=== PATIENT | male | born 1985 | race Caucasian/White ===

== ENCOUNTER 2020-09-13 07:21 | Day surgery (SDC) | payer OTHER ==
[2020-09-11 10:12] VITALS: BMI 65.0
[~2020-09-13 07:21] MED LIST: ACETAMINOPHEN TAB 500 MG TAB PO PRN; HEPARIN SODIUM,PORCINE 5,000 UNIT/ML 1 ML VIAL SQ PRN; Pre Op ABX Message 1 EACH MISC MISCELLANE ONE
[2020-09-13] MEDS ORDERED: ONDANSETRON 4 MG/2 ML VIAL ONE (07:53)
[2020-09-13] MEDS ORDERED: LACTATED RINGERS 1,000 ML IV ONE (08:15)
[2020-09-13] MEDS ORDERED: ONDANSETRON 4 MG/2 ML VIAL IVP ONE (08:18)
[2020-09-13] MEDS ORDERED: LIDOCAINE 1% (10MG/ML) FOR IV START INTRADERMA ONE (08:18)
[2020-09-13] MEDS ORDERED: DEXAMETHASONE SOD PHOSPHATE 4 MG/ML 1 ML VIAL IV ONE (08:19)
--- NOTE | 2020-09-13 09:01 | P.GSHP ---
History of Present Illness H&P Date: 09/13/20 Chief Complaint: Lipoma posterior scalp This is a 35-year-old male who presents today for excision of lipoma. Patient has a 10 cm lipoma located posterior scalp. Past Medical History Past Medical History: Asthma, GERD/Reflux Additional Past Medical History / Comment(s): No medication use for Asthma. Varicose veins. History of Any Multi-Drug Resistant Organisms: None Reported Past Surgical History: Hernia Repair Additional Past Surgical History / Comment(s): Distended bowel at 1 month old, had surgery. EGD. Past Anesthesia/Blood Transfusion Reactions: Previous Problems w/ Anesthesia Additional Past Anesthesia/Blood Transfusion Reaction / Comment(s): "Blood oxygen low coming out after hernia surgery." Past Psychological History: No Psychological Hx Reported Smoking Status: Former smoker Past Alcohol Use History: Rare Additional Past Alcohol Use History / Comment(s): Smoked for a few months 3 yrs ago. Past Drug Use History: None Reported - Past Family History Father Family Medical History: Pulmonary Embolus Medications and Allergies Home Medications Medication Instructions Recorded Confirmed Type Omeprazole 40 mg PO QAM 09/11/20 09/13/20 History Allergies Allergy/AdvReac Type Severity Reaction Status Date / Time No Known Allergies Allergy Verified 09/13/20 07:49 Surgical - Exam Vital Signs Temp Pulse Resp BP Pulse Ox 97.6 F 95 16 136/89 99 09/13/20 07:42 09/13/20 07:42 09/13/20 07:42 09/13/20 07:42 09/13/20 07:42 - General well developed, well nourished, no distress - Eyes PERRL - ENT normal pinna - Neck no masses - Respiratory normal expansion - Cardiovascular Rhythm: regular - Abdomen Abdomen: soft, non tender - Integumentary 10 cm lipoma posterior scalp Assessment and Plan Assessment: Posterior scalp lipoma. We'll perform excision.
[2020-09-13] MEDS ORDERED: MIDAZOLAM 2 MG/2 ML VIAL ONE (09:05)
[2020-09-13] MEDS ORDERED: KETOROLAC 15 MG/ML 1 ML VIAL ONE (09:05)
[2020-09-13] MEDS ORDERED: KETAMINE 10 MG/ML 20 ML VIAL ONE (09:05)
[2020-09-13] MEDS ORDERED: PROPOFOL 10 MG/ML 20 ML VIAL IV ONE (09:05)
[2020-09-13] MEDS ORDERED: fentaNYL (PF) 50 MCG/ML 2 ML AMP ONE (09:05)
[2020-09-13] MEDS ORDERED: BUPIVACAINE (PF) 0.25% 30 ML VIAL SQ ONE ×2 (09:26)
[2020-09-13 10:22] VITALS: TEMP 97.4
--- NOTE | 2020-09-13 10:23 | P.OP ---
Date of Procedure: 09/13/20 Preoperative Diagnosis: 10 cm lipoma of posterior scalp Postoperative Diagnosis: 10 cm sebaceous cyst posterior scalp Procedure(s) Performed: Excision of sebaceous cyst Anesthesia: MAC Surgeon: Carter Richard Estimated Blood Loss (ml): 10 Pathology: other (Sebaceous cyst) Condition: stable Disposition: PACU Description of Procedure: Patient's placed on the operative table in the lateral position. He received IV sedation. His posterior neck was prepped and draped usual sterile fashion. The skin was anesthetized 1% local Xylocaine. Using a 15 blade the skin was incised and then using electrocautery and sharp dissection the mass was excised. The mass is a large sebaceous cyst. Cystoscopy removed. Bovie hemostasis. The skin was closed interrupted 3-0 Monocryl suture. A [place] drains placed a wound. Patient top she will was sent to recovery room stable condition.
[2020-09-13 10:50] VITALS: RESP 16
[2020-09-13 11:10] VITALS: BP 113/71; PULSE 85
== END 2020-09-13 12:16 | disposition home or self-care (01) ==
LOC: OR 07:21
PROVIDERS: ATTEND Surgery
DX: L72.11 Pilar cyst (principal); J45.909 Unspecified asthma, uncomplicated; K21.9 Gastro-esophageal reflux disease without esophagitis; I83.90 Asymptomatic varicose veins of unspecified lower extremity; Z98.890 Other specified postprocedural states; Z87.891 Personal history of nicotine dependence; Z79.899 Other long term (current) drug therapy
CPT/HCPCS: 88304; 11426; J2250; J1644; J1100; J2405; J3010; J1885; J2704

== ENCOUNTER → 2020-09-23 | Outpatient (CLI) | payer OTHER ==
[2020-09-23 14:22] VITALS: BP 129/85; PULSE 110; RESP 22; TEMP 97.8; BMI 68.2
--- NOTE | 2020-09-23 14:30 | P.HPBAR ---
Bariatric H&P - History & Physicial H&P Date: 09/23/20 History & Physicial: Visit/CC: initial visit Patient initial contact: Initial weight: Initial weight in pounds: Height: 6 ft 3 in Initial BMI: Last weight: Current weight: 247.661 kg Current weight in pounds: 546.00 Current BMI: 68.2 [place] body weight (based on NIH guidelines): 88.904 kg Excess body weight loss: The patient is a 35 year-old M who presents for Bariatric Assessment. Patient presents today for initial bariatric consultation. He is obese. BMI is 68. He weighs 546 pounds. He has had lifetime problems obesity. He has multiple medical comorbidities. Past Medical History Past Medical History: Asthma, GERD/Reflux, Osteoarthritis (OA) Additional Past Medical History / Comment(s): No medication use for Asthma. Varicose veins. History of Any Multi-Drug Resistant Organisms: None Reported Past Surgical History: Appendectomy, Hernia Repair Additional Past Surgical History / Comment(s): Distended bowel at 1 month old, had surgery. EGD. "golf ball size" fatty tumor removed Aug 2020. Past Anesthesia/Blood Transfusion Reactions: Previous Problems w/ Anesthesia Additional Past Anesthesia/Blood Transfusion Reaction / Comm: "Blood oxygen low coming out after hernia surgery." Past Psychological History: No Psychological Hx Reported Smoking Status: Former smoker Past Alcohol Use History: Rare Additional Past Alcohol Use History / Comment(s): Smoked for a few months 3 yrs ago. Past Drug Use History: None Reported - Past Family History Father Family Medical History: Pulmonary Embolus Surgical - Exam Vital Signs Temp Pulse Resp BP 97.8 F 110 H 22 129/85 09/23/20 14:02 09/23/20 14:02 09/23/20 14:02 09/23/20 14:02 BMI 68 - General well developed, well nourished, no distress - Eyes PERRL - ENT normal pinna - Neck no masses - Respiratory normal expansion - Cardiovascular Rhythm: regular - Abdomen Abdomen: soft, non tender Bariatric Assessment & Plan Plan: Morbid obesity, BMI 68. Patient will undergo EGD. He'll follow-up next month. Bariatric Checklist Checklist: Plan: Checklist: EGD: 1. Hiatal hernia: 2. H. Pylori: HgbA1c: Vitamin D: Smoking: Primary care physician referral: Dr. Duenas Psychiatry clearance: Cardiology clearance: Sleep study: Diet journal: VTE risk score: VTE risk level: Rehab needs at discharge:
[2020-09-23 16:01] LABS: HCT 45.6 % (39.0-53.0); HGB 15.4 gm/dL (13.0-17.5); MCH 28.9 pg (25.0-35.0); MCHC 33.7 g/dL (31.0-37.0); MCV 85.6 fL (80.0-100.0); Mean Platelet Volume 6.9; Platelet Count 344 k/uL (150-450); RBC 5.33 m/uL (4.30-5.90); RDW 12.7 % (11.5-15.5); WBC 13.2 k/uL (3.8-10.6)
[2020-09-24 01:44] LABS: African American GFR (CKD) 112.5 (60.0-200.0); Albumin 4.7 g/dL (3.80-4.90); Albumin/Globulin Ratio 2.04 (1.60-3.17); Anion Gap 13.7 mmol/L (4.00-12.00); Calcium 9.3 mg/dL (8.7-10.3); Carbon Dioxide 22.3 mmol/L (21.6-31.8); Globulin 2.3 g/dL (1.6-3.3); Non-African American GFR(CKD) 97.1 (60.0-200.0); Potassium 4.1 mmol/L (3.5-5.5); Total Bilirubin 0.3 mg/dL (0.3-1.2)
[2020-09-24 03:38] LABS: Hemoglobin A1C 5.2 % (4.0-6.0)
== END | disposition home or self-care (01) ==
LOC: BARWHC3 13:56
PROVIDERS: ATTEND Surgery
DX: E66.01 Morbid (severe) obesity due to excess calories (principal); Z68.44 Body mass index [BMI] 60.0-69.9, adult
CPT/HCPCS: 36415; 80053; 82306; 82607; 82746; 83036; 84425; 85027; 99211

== ENCOUNTER 2020-10-10 09:41 | Day surgery (SDC) | payer OTHER ==
[2020-10-09 09:36] VITALS: BMI 68.1
[~2020-10-10 09:41] MED LIST changes: -ACETAMINOPHEN TAB 500 MG TAB PO PRN; -HEPARIN SODIUM,PORCINE 5,000 UNIT/ML 1 ML VIAL SQ PRN; +LACTATED RINGERS 1,000 ML IV SCH; +LIDOCAINE 1% (10MG/ML) FOR IV START INTRADERMA PRN; -Pre Op ABX Message 1 EACH MISC MISCELLANE ONE
[2020-10-10 11:04] VITALS: RESP 16; TEMP 98
[2020-10-10] MEDS ORDERED: PROPOFOL 10 MG/ML 20 ML VIAL IV ONE (11:26)
--- NOTE | 2020-10-10 11:28 | P.GSHP ---
History of Present Illness H&P Date: 10/10/20 Chief Complaint: GERD, morbid obesity Is a 35-year-old male presents today for EGD. And issues with GERD. Patient underwent workup for sleeve gastrectomy. His current BMI is 68 Past Medical History Past Medical History: Asthma, GERD/Reflux, Osteoarthritis (OA) Additional Past Medical History / Comment(s): No medication use for Asthma. Varicose veins. History of Any Multi-Drug Resistant Organisms: None Reported Past Surgical History: Appendectomy, Hernia Repair Additional Past Surgical History / Comment(s): Distended bowel at 1 month old, had surgery. EGD. 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 Past Anesthesia/Blood Transfusion Reactions: Previous Problems w/ Anesthesia Additional Past Anesthesia/Blood Transfusion Reaction / Comment(s): "Blood oxygen low coming out after hernia surgery." Smoking Status: Former smoker - Past Family History Father Family Medical History: Pulmonary Embolus Medications and Allergies Home Medications Medication Instructions Recorded Confirmed Type Omeprazole 40 mg PO QAM 09/11/20 10/09/20 History Allergies Allergy/AdvReac Type Severity Reaction Status Date / Time cat dander Allergy Swelling Verified 10/10/20 11:00 Surgical - Exam Vital Signs Temp Pulse Resp BP Pulse Ox 98 F 93 16 163/95 96 10/10/20 11:02 10/10/20 11:02 10/10/20 11:02 10/10/20 11:02 10/10/20 11:02 - General well developed, well nourished, no distress - Eyes PERRL - ENT normal pinna - Neck no masses - Respiratory normal expansion - Cardiovascular Rhythm: regular - Abdomen Abdomen: soft, non tender Assessment and Plan Assessment: GERD. We'll perform EGD. Morbid obesity, BMI 68
--- NOTE | 2020-10-10 11:41 | P.OP ---
Date of Procedure: 10/10/20 Preoperative Diagnosis: GERD Morbid obesity Postoperative Diagnosis: Antral gastritis Morbid obesity, BMI 68 Procedure(s) Performed: EGD Anesthesia: MAC Surgeon: Carter Richard Pathology: other (Antrum) Condition: stable Disposition: PACU Description of Procedure: The patient's placed on the endoscopy table in the lateral position. He received IV sedation. The gastroscope placed oropharynx passed in the esophagus and stomach. Scope was then placed through the pylorus. First and second portion of the duodenum. Normal. Scope was then brought back the antrum was mildly inflamed. A biopsies performed. Scope was then retroflexed and remainder stomach appeared normal. The GE junction was at 47 is. There is no significant hiatal hernia. The distal esophagus appeared normal. The proximal esophagus appeared normal. Scope was withdrawn for patient.
[2020-10-10 12:03] VITALS: BP 132/86; PULSE 93
== END 2020-10-10 12:27 | disposition home or self-care (01) ==
LOC: ORWHC2ENDO 09:41
PROVIDERS: ATTEND Surgery
DX: K29.50 Unspecified chronic gastritis without bleeding (principal); E66.01 Morbid (severe) obesity due to excess calories; Z68.44 Body mass index [BMI] 60.0-69.9, adult; J45.909 Unspecified asthma, uncomplicated; K21.9 Gastro-esophageal reflux disease without esophagitis; M19.90 Unspecified osteoarthritis, unspecified site; I83.90 Asymptomatic varicose veins of unspecified lower extremity; Z90.89 Acquired absence of other organs; Z98.890 Other specified postprocedural states; Z87.891 Personal history of nicotine dependence; Z82.49 Family history of ischemic heart disease and other diseases of the circulatory system; Z79.899 Other long term (current) drug therapy; Z91.048 Other nonmedicinal substance allergy status
CPT/HCPCS: 43239; 88305

== ENCOUNTER → 2020-10-21 | Outpatient (CLI) | payer OTHER ==
[2020-10-21 14:39] VITALS: BP 139/90; PULSE 101; RESP 16; TEMP 98; BMI 67.5
--- NOTE | 2020-10-21 15:29 | P.HPBAR ---
Bariatric H&P - History & Physicial H&P Date: 10/21/20 History & Physicial: Visit/CC: EGD f/u Patient initial contact: Initial weight: 244.94 kg Initial weight in pounds: 540.00 Height: 6 ft 3 in Initial BMI: 67.5 Last weight: Current weight: 244.94 kg Current weight in pounds: 540.00 Current BMI: 67.5 [place] body weight (based on NIH guidelines): 88.904 kg Excess body weight loss: 0.0% The patient is a 35 year-old M who presents for Bariatric Assessment. Patient presents today for presurgical consultation. He underwent EGD last week. Patient's found have some mild gastritis. His current BMI is 68. Past Medical History Past Medical History: Asthma, GERD/Reflux, Osteoarthritis (OA) Additional Past Medical History / Comment(s): No medication use for Asthma. Varicose veins. History of Any Multi-Drug Resistant Organisms: None Reported Past Surgical History: Appendectomy, Hernia Repair Additional Past Surgical History / Comment(s): Distended bowel at 1 month old, had surgery. EGD. 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 Past Anesthesia/Blood Transfusion Reactions: Previous Problems w/ Anesthesia Additional Past Anesthesia/Blood Transfusion Reaction / Comm: "Blood oxygen low coming out after hernia surgery." Smoking Status: Former smoker - Past Family History Father Family Medical History: Pulmonary Embolus Surgical - Exam Vital Signs Temp Pulse Resp BP 98 F 101 H 16 139/90 10/21/20 14:36 10/21/20 14:36 10/21/20 14:36 10/21/20 14:36 - General well developed, well nourished, no distress - Eyes PERRL - ENT normal pinna - Neck no masses - Respiratory normal expansion - Cardiovascular Rhythm: regular - Abdomen Abdomen: soft, non tender Bariatric Assessment & Plan Plan: RBC, BMI is 68. Patient will be scheduled for sleeve gastrectomy once his insurance authorization requirements have been met. Bariatric Checklist Checklist: Plan: Checklist: EGD: 1. Hiatal hernia: 2. H. Pylori: HgbA1c: Vitamin D: Smoking: Primary care physician referral: Dr. Duenas Psychiatry clearance: Cardiology clearance: Sleep study: Diet journal: VTE risk score: VTE risk level: Rehab needs at discharge:
== END | disposition home or self-care (01) ==
LOC: BARWHC3 13:55
PROVIDERS: ATTEND Surgery
DX: Z01.818 Encounter for other preprocedural examination (principal); J45.909 Unspecified asthma, uncomplicated; E66.01 Morbid (severe) obesity due to excess calories; M19.90 Unspecified osteoarthritis, unspecified site; K21.9 Gastro-esophageal reflux disease without esophagitis; Z68.44 Body mass index [BMI] 60.0-69.9, adult; Z87.891 Personal history of nicotine dependence; Z79.899 Other long term (current) drug therapy
CPT/HCPCS: 99211

== ENCOUNTER 2020-11-07 11:12 | Emergency (ER) | payer OTHER ==
[2020-11-07 11:30] VITALS: RESP 18
--- NOTE | 2020-11-07 12:02 | ED ---
Back Pain HPI - General Chief Complaint: Back Pain/Injury Stated Complaint: Shoulder/back pain Time Seen by Provider: 11/07/20 11:32 Source: patient Limitations: no limitations - History of Present Illness Initial Comments: 35-year-old male presenting to the emergency department today for chief complaint of right shoulder/back pain. Pt states he was drinking Wednesday and went in his backyard to assess a mole situation in his yard. HE states he tripped and fell, striking his right side of body/shoulder. He states he has had sharp pain in the right back near shoulder blade and anterior shoulder/chest since. Patient states he was concerned he may have broke a rib/hurt his shoulder. He states he has had shoulder seperation as a kid and states it was "pretty bad". Patient denies nausea, vomiting, jaw pain, chest pressure, hemoptysis, leg swelling, dyspnea. Patient denies pain prior to the fall. Patient on arrival appears well nontoxic in no acute dsitress. Pt was told to come here by his chiropractor who stated he was too big for the machine they have. - Related Data Home Medications Medication Instructions Recorded Confirmed Omeprazole 20 mg PO DAILY 11/07/20 11/07/20 Allergies Allergy/AdvReac Type Severity Reaction Status Date / Time cat dander Allergy Swelling Verified 11/07/20 14:03 Review of Systems ROS Statement: Those systems with pertinent positive or pertinent negative responses have been documented in the HPI. ROS Other: All systems not noted in ROS Statement are negative. Past Medical History Past Medical History: Asthma, GERD/Reflux, Osteoarthritis (OA) Additional Past Medical History / Comment(s): No medication use for Asthma. Varicose veins. History of Any Multi-Drug Resistant Organisms: None Reported Past Surgical History: Appendectomy, Hernia Repair Additional Past Surgical History / Comment(s): Distended bowel at 1 month old, had surgery. EGD. 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 Past Anesthesia/Blood Transfusion Reactions: Previous Problems w/ Anesthesia Additional Past Anesthesia/Blood Transfusion Reaction / Comment(s): "Blood oxygen low coming out after hernia surgery." Past Psychological History: No Psychological Hx Reported Smoking Status: Former smoker Past Alcohol Use History: None Reported Past Drug Use History: None Reported - Past Family History Father Family Medical History: Pulmonary Embolus General Exam - General Exam Comments Initial Comments: General: The patient is awake and alert, in no distress, and does not appear acutely ill. Eye: Pupils are equal, round and reactive to light, extra-ocular movements are intact. No nystagmus. There is normal conjunctiva bilaterally. No signs of icterus. Ears, nose, mouth and throat: There are moist mucous membranes and no oral les ions. Neck: The neck is supple, there is no tenderness or JVD. No midline tenderness to neck. Cardiovascular: There is a regular rate and rhythm. No murmur, rub or gallop is appreciated. Respiratory: Lungs are clear to auscultation, respirations are non-labored, breath sounds are equal. No wheezes, stridor, rales, or rhonchi. No retractions or abdominal breathing Musculoskeletal: Upon inspection of the right shoulder there is a small bump over the acromioclavicular joint no erythema no tenting no redness patient is pain with range of motion overhead but this is minimal. Full range motion without limitations Strength 5/5. Sensation intact proximal and distal to injury site, no badge anesthesia. Radial pulses equal bilaterally 2+. Neurological: A&O x 3. CN II-XII intact grossly, There are no obvious motor or sensory deficits. Coordination appears grossly intact. Speech is normal. Skin: Skin is warm and dry and no rashes or lesions are noted. Psychiatric: Cooperative, appropriate mood & affect, normal judgment. Limitations: no limitations Course Vital Signs 11/07/20 11/07/20 11:27 14:04 Temperature 98.0 F 98 F Pulse Rate 89 82 Respiratory 18 18 Rate Blood Pressure 134/90 146/88 O2 Sat by Pulse 96 97 Oximetry Medical Decision Making - Medical Decision Making Patient presented for fall he denied head or neck injury. Complaining of right shoulder pain. Chest x-ray within normal limits. Patient's right clavicle has a distal chip fracture with obvious acromioclavicular joint separation. Patient placed in sling. He is neurovascular intact with prior to and after sling placement he'll be discharged with orthopedic f/u. She is agreeable to this care plan discharge at this time. Disposition Clinical Impression: Clavicle fracture, Separation of AC joint, Right shoulder pain Disposition: HOME SELF-CARE Condition: Good Instructions (If sedation given, give patient instructions): Acromioclavicular Separation (ED) Additional Instructions: Please use medication as discussed. Please follow-up with family doctor in the next 2 days, recommend orthopedic f/u. Sling for comfort. Please return to emergency room if the symptoms increase or worsen or for any other concerns. Is patient prescribed a controlled substance at d/c from ED?: No Referrals: Inga Duenas MD [Primary Care Provider] - 1-2 days Campbell Mcnair MD [STAFF PHYSICIAN] - 1-2 days Time of Disposition: 13:38
[2020-11-07] MEDS ORDERED: MORPHINE SULFATE 4 MG/ML SYRINGE IM STA (13:12)
--- NOTE | 2020-11-07 13:23 | XR ---
EXAMINATION TYPE: XR shoulder complete RT DATE OF EXAM: 11/07/2020 CLINICAL HISTORY: pain TECHNIQUE: Three views of the right shoulder are obtained. COMPARISON: None FINDINGS: There is a tiny ossific density adjacent to the distal clavicle which may reflect a small c hip or avulsion fracture. There is also elevation of the distal clavicle relative to the chromium com patible with AC joint separation. The visualized ribs are intact and unremarkable. IMPRESSION: There is a tiny ossific density adjacent to the distal clavicle which may reflect a small chip or avu lsion fracture. There is also elevation of the distal clavicle relative to the chromium compatible wi th AC joint separation.
--- NOTE | 2020-11-07 13:28 | XR ---
EXAMINATION TYPE: XR chest 2V DATE OF EXAM: 11/07/2020 COMPARISON: NONE HISTORY: Falling injury with chest TECHNIQUE: Frontal and lateral views of the chest are obtained. FINDINGS: There are low lung volumes without suspicious peripheral focal air space opacity, pleural effusion, or pneumothorax seen. The cardiac silhouette size is within normal limits. The osseous s tructures are intact. IMPRESSION: No acute cardiopulmonary process.
[2020-11-07] MEDS ORDERED: ACET/COD 300 MG/30 MG STARTER PACK 6 TAB BTL PO STA (13:38)
[2020-11-07 14:06] VITALS: BP 146/88; PULSE 82; TEMP 98
== END 2020-11-07 14:05 | disposition home or self-care (01) ==
LOC: EC 11:12
DX: S42.031A Displaced fracture of lateral end of right clavicle, initial encounter for closed fracture (principal); S43.101A Unspecified dislocation of right acromioclavicular joint, initial encounter; W01.198A Fall on same level from slipping, tripping and stumbling with subsequent striking against other object, initial encounter; Y92.096 Garden or yard of other non-institutional residence as the place of occurrence of the external cause
CPT/HCPCS: 73030; 71046; 99284; 96372; J2270

== ENCOUNTER → 2020-11-18 | Outpatient (CLI) | payer OTHER ==
[2020-11-18 09:42] VITALS: BMI 69.7
== END ==
LOC: BARWHC3 08:39
PROVIDERS: ATTEND Surgery
DX: E66.01 Morbid (severe) obesity due to excess calories (principal); Z68.44 Body mass index [BMI] 60.0-69.9, adult; Z71.3 Dietary counseling and surveillance; J45.909 Unspecified asthma, uncomplicated; K21.9 Gastro-esophageal reflux disease without esophagitis
CPT/HCPCS: 97804

== ENCOUNTER → 2021-01-22 | Outpatient (CLI) | payer OTHER ==
--- NOTE | 2021-01-22 22:29 | CONS ---
CONSULTATION REASON FOR CONSULTATION: 35-year-old gentleman has been evaluated in the sleep center for possible obstructive sleep apnea-hypopnea syndrome. 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 His sleep schedule is from 2:00 to 3:00 a.m. until 8 a.m. on weekdays and till 9:00 a.m. on weekends. FALLING ASLEEP: He does have problems with falling asleep. He has a TV set in bedroom. DURING SLEEP: He usually sleeps on the side position with loud snoring and awakenings from sleep once with nocturia. He increased his weight for the last 10 years from to 200 pounds. Presently, his weight is 555 pounds. Positive history of heartburn during the sleep, restless legs, sweating. In the morning patient wakes up tired and has difficulties to pay attention, has problems with concentration and anxiety. [place] Sleepiness Scale significantly increased to 12. DURING THE DAY/SLEEP WAKE EVALUATION: The patient may take one nap around 1:00 to 2:00 p.m. No history of hypnagogic hallucinations, sleep paralysis or cataplexy. PAST MEDICAL HISTORY: Positive for acid reflux, asthma, arthritis, bronchitis, headaches. PAST SURGICAL HISTORY: Hernia repair. MEDICATIONS: Omeprazole once a day, vitamin D. SOCIAL HISTORY: Negative for smoking, alcohol consumption rarely. FAMILY HISTORY: Hypertension, hyperlipidemia, cancer, diabetes, during the sleep. REVIEW OF SYSTEMS: Sleepiness during the day. Loud snoring. PHYSICAL EXAMINATION: Pleasant gentleman without distress. Significantly obese gentleman without distress. BP 150/86, HR 96, RR 18, height 6 feet 2 inches, weight 555, body mass index 71.2, temperature 97.2, oxygen saturation at room air 94%. Oropharynx moderately low position of soft palate. Mallampati III. NECK: 19 inches in circumference. ABDOMEN: Significantly obese. EXTREMITIES: No clubbing or cyanosis. MOTOR TUNE UP SPECIALIST: Awake, alert, and oriented X3. Cranial nerves 2 to 7 intact. There is no fasciculation or atrophy. noted. No focal deficits observed. IMPRESSION: 1. Loud snoring, awakenings from sleep, low position of soft palate, Mallampati 3. Severe wide neck 19 inches in circumference. [place] Sleepiness Scale increased to 12, obstructive sleep apnea-hypopnea syndrome. 2. Morbid obesity. Body mass index 71.2 and weight is 555 pounds. 3. Possible obesity hypoventilation syndrome. 4. History of asthma. 5. History of arthritis. 6. Headaches. 7. History of restless legs syndrome, possibly periodic limb movements. 8. Status post hernia repair. PLAN: 1. Home sleep apnea test for checking breathing during the sleep. 2. CPAP/BiPAP titration if sleep study confirms obstructive sleep apnea-hypopnea syndrome. 3. Preferable position during sleep on the side. 4. No driving if patient feels any sleepiness. 5. I will see patient for follow up visit to explain results of testing and following plan. Thank you very much for referring this patient for consultation. Jorge Alberto Lindsay MD, PhD, FAASM Diplomat of [place] [employer] [place] [employer] [facility] [place] MMODL / BOUBACARN: [id number] /
== END ==
LOC: SLEEP 16:19
PROVIDERS: ATTEND Internal Medicine
DX: G47.33 Obstructive sleep apnea (adult) (pediatric) (principal); E66.01 Morbid (severe) obesity due to excess calories; J45.909 Unspecified asthma, uncomplicated; M19.90 Unspecified osteoarthritis, unspecified site; G25.81 Restless legs syndrome; Z98.890 Other specified postprocedural states; Z68.45 Body mass index [BMI] 70 or greater, adult; Z91.09 Other allergy status, other than to drugs and biological substances
CPT/HCPCS: 99211

== ENCOUNTER → 2021-03-27 | Outpatient (CLI) | payer OTHER ==
[~2021-03-27] MED LIST changes: +DOBUTamine DRIP for NUC MED 500 MG in DEXTROSE/WATER 1 250ML.BAG IV PRN; -LACTATED RINGERS 1,000 ML IV SCH; -LIDOCAINE 1% (10MG/ML) FOR IV START INTRADERMA PRN
--- NOTE | 2021-03-27 18:05 | P.STRESS ---
- Stress Test Note Stress Test Results/Findings: Exam Performed: dobutamine stress echo with con Exam Date: 03/27/21 Reason for Exam: PRE-OP Height: 6 ft 3 in Weight: 250 kg Protocol: DOBUTAMINE STRESS ECHO W/ LUMASON Stage: 3 Duration of Exercise: 9:36 Resting Heart Rate: 87 Resting Blood Pressure: 125/86 Maximum Achieved Heart Rate: 167 Maximum Achieved Blood Pressure: 153/72 85% PMHR: 157 100% PMHR: 185 METS: NA Technologist Comment: Stress Test Results/Findings: Patient underwent dobutamine stress echo with infusion of dobutamine into Stage 3 for a total of 9 minutes 36 seconds. Patient's maximum heart rate was 167 which represented 90 % age-predicted maximum heart rate. Stress EKG portion: At baseline patient's EKG showed normal sinus rhythm, normal axis, no significant ST or T-wave abnormalities. At peak dobutamine infusion, EKG showed no significant change from baseline. Occasional PVC.. Stress echo portion: 2-D echocardiogram was performed in the parasternal long, personal short, apical 2 and apical four-chamber views at rest, low-dose, peak infusion and in recovery. At baseline, echocardiogram showed left ventricular ejection fraction 55% without wall motion abnormalities. With peak infusion, echocardiogram shows improvement in left ventricular ejection fraction, increase contractility, decrease in left ventricular dimension without wall motion abnormalities consistent with a normal response to dobutamine. Conclusions: 1. Normal stress EKG and echo response to dobutamine infusion without any evid ence of inducible ischemia.
== END | disposition home or self-care (01) ==
LOC: RADNMMAIN 09:53
PROVIDERS: ATTEND Internal Medicine
DX: Z01.818 Encounter for other preprocedural examination (principal)
CPT/HCPCS: 93351; Q9950

== ENCOUNTER → 2021-05-12 | Outpatient (CLI) | payer OTHER ==
[2021-05-12 17:16] LABS: Basophils # (A) 0.1 k/uL (0-0.2); Basophils % (A) 0 %; Eosinophils # (A) 0.4 k/uL (0-0.7); Eosinophils % (A) 4 %; HCT 45.3 % (39.0-53.0); HGB 15.2 gm/dL (13.0-17.5); Lymphocytes # (A) 2.6 k/uL (1.0-4.8); Lymphocytes % (A) 22 %; MCH 29.3 pg (25.0-35.0); MCHC 33.6 g/dL (31.0-37.0); MCV 87.2 fL (80.0-100.0); Monocytes # (A) 0.5 k/uL (0-1.0); Monocytes % (A) 4 %; Neutrophils % (A) 68 %; Platelet Count 302 k/uL (150-450); RBC 5.19 m/uL (4.30-5.90); RDW 12.6 % (11.5-15.5); WBC 11.8 k/uL (3.8-10.6)
[2021-05-12 17:30] LABS: ALT 24 U/L (4-49); AST 29 U/L (17-59); African American GFR (CKD) >90 (>60 ml/min/1.73 sqM); Albumin 4.2 g/dL (3.5-5.0); Alkaline Phosphatase 90 U/L (38-126); Anion Gap 11 mmol/L; Blood Urea Nitrogen 13 mg/dL (9-20); Calcium 9.5 mg/dL (8.4-10.2); Carbon Dioxide 22 mmol/L (22-30); Chloride 102 mmol/L (98-107); Glucose 88 mg/dL (74-99); Non-African American GFR(CKD) >90 (>60 ml/min/1.73 sqM); Potassium 4.1 mmol/L (3.5-5.1); Sodium 135 mmol/L (137-145); Total Bilirubin 0.9 mg/dL (0.2-1.3); Total Protein 7.4 g/dL (6.3-8.2)
== END | disposition home or self-care (01) ==
LOC: LABPAT 16:02
PROVIDERS: ATTEND Surgery
DX: Z01.812 Encounter for preprocedural laboratory examination (principal)
CPT/HCPCS: 80053; 85025

== ENCOUNTER → 2021-05-12 | Outpatient (CLI) | payer OTHER ==
[2021-05-12 15:13] VITALS: BP 138/97; PULSE 88; RESP 18; TEMP 98.2; BMI 67.1
--- NOTE | 2021-05-12 15:53 | P.HPBAR ---
Bariatric H&P - History & Physicial H&P Date: 05/12/21 History & Physicial: Visit/CC: follow up / presurgical visit Patient initial contact: Initial weight: 244.94 kg Initial weight in pounds: 540.00 Height: 6 ft 3 in Initial BMI: 67.5 Last weight: Current weight: 243.579 kg Current weight in pounds: 537.00 Current BMI: 67.1 [place] body weight (based on NIH guidelines): 88.904 kg Excess body weight loss: 0.8% The patient is a 36 year-old M who presents for Bariatric Assessment. Patient resents today for a surgical consultation. His BMI 67. He is scheduled for surgery in 2 weeks. As an excellent understanding sleeve gastrectomy. Past Medical History Past Medical History: Asthma, GERD/Reflux, Osteoarthritis (OA) Additional Past Medical History / Comment(s): No medication use for Asthma. Varicose veins. History of Any Multi-Drug Resistant Organisms: None Reported Past Surgical History: Appendectomy, Hernia Repair Additional Past Surgical History / Comment(s): Distended bowel at 1 month old, had surgery. EGD. 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 Past Anesthesia/Blood Transfusion Reactions: Previous Problems w/ Anesthesia Additional Past Anesthesia/Blood Transfusion Reaction / Comm: "Blood oxygen low coming out after hernia surgery." Past Psychological History: No Psychological Hx Reported Smoking Status: Former smoker Past Alcohol Use History: None Reported Additional Past Alcohol Use History / Comment(s): Smoked for a few months 3 yrs ago. Past Drug Use History: None Reported - Past Family History Father Family Medical History: Pulmonary Embolus Surgical - Exam Vital Signs Temp Pulse Resp BP 98.2 F 88 18 138/97 05/12/21 15:08 05/12/21 15:08 05/12/21 15:08 05/12/21 15:08 - General well developed, well nourished, no distress - Eyes PERRL - ENT normal pinna, normal nares - Neck no masses - Respiratory normal expansion - Cardiovascular Rhythm: regular - Abdomen Abdomen: soft, non tender Bariatric Assessment & Plan Plan: Morbid obesity. Patient has an excellent sedation. He'll be scheduled for surgery in 2 weeks. Bariatric Checklist Checklist: Plan: Checklist: EGD: 1. Hiatal hernia: 2. H. Pylori: HgbA1c: Vitamin D: Smoking: Primary care physician referral: Dr. Duenas Psychiatry clearance: Cardiology clearance: Sleep study: Diet journal: VTE risk score: VTE risk level: Rehab needs at discharge:
== END ==
LOC: BARWHC3 14:20
PROVIDERS: ATTEND Surgery
DX: E66.01 Morbid (severe) obesity due to excess calories (principal); Z01.818 Encounter for other preprocedural examination; J45.909 Unspecified asthma, uncomplicated; M19.90 Unspecified osteoarthritis, unspecified site; Z87.891 Personal history of nicotine dependence; Z68.44 Body mass index [BMI] 60.0-69.9, adult; Z91.048 Other nonmedicinal substance allergy status
CPT/HCPCS: 99211

== ENCOUNTER 2021-05-26 06:31 | Inpatient (IN) | payer OTHER ==
[~2021-05-26 06:31] MED LIST changes: +DEXAMETHASONE SOD PHOSPHATE 4 MG/ML 1 ML VIAL IV ONE; -DOBUTamine DRIP for NUC MED 500 MG in DEXTROSE/WATER 1 250ML.BAG IV PRN; +ENOXAPARIN 40 MG/0.4 ML SYRINGE SQ PRN; +ceFAZolin 3 GM in SODIUM CHLORIDE 0.9% 100 ML IVPB PRN
[2021-05-26] MEDS ORDERED: METOCLOPRAMIDE 5 MG/ML 2 ML VIAL ONE (06:59)
[2021-05-26] MEDS: LACTATED RINGERS 1,000 ML IV SCH (07:21)
[2021-05-26] MEDS: ONDANSETRON 4 MG/2 ML VIAL IVP ONE ×2 (07:22→09:40)
[2021-05-26] MEDS ORDERED: FAMOTIDINE 20 MG/2 ML VIAL IVP ONE (07:22)
[2021-05-26] MEDS ORDERED: NEOSTIGMINE 1 MG/ML 10 ML VIAL ONE (07:53)
[2021-05-26] MEDS ORDERED: ROCURONIUM 10 MG/ML (5 ML VIAL) IV ONE (07:53)
[2021-05-26] MEDS ORDERED: LIDOCAINE 1% INJ 10MG/ML (20 ML MDV) ONE (07:53)
[2021-05-26] MEDS ORDERED: KETAMINE 10 MG/ML 20 ML VIAL ONE (07:53)
[2021-05-26] MEDS ORDERED: MIDAZOLAM 2 MG/2 ML VIAL ONE (07:53)
[2021-05-26] MEDS ORDERED: GLYCOPYRROLATE 0.2 MG/ML 2 ML VIAL ONE (07:53)
[2021-05-26] MEDS ORDERED: fentaNYL (PF) 50 MCG/ML 2 ML AMP ONE (07:53)
[2021-05-26] MEDS ORDERED: PROPOFOL 10 MG/ML 20 ML VIAL IV ONE (07:53)
[2021-05-26] MEDS ORDERED: SUCCINYLCHOLINE CHLORIDE VIAL 200 MG/10 ML VIAL IV ONE (07:53)
[2021-05-26] MEDS ORDERED: BUPIVACAINE (PF) 0.25% 30 ML VIAL SQ ONE (08:22)
[2021-05-26] MEDS ORDERED: LACTATED RINGERS 1,000 ML IV ONE (09:23)
[2021-05-26] MEDS: HYDROmorphone 0.5 MG/0.5 ML SYRINGE IVP PRN ×4 (09:32→10:20)
[2021-05-26] MEDS ORDERED: NALOXONE 0.4 MG/ML 1 ML VIAL IV PRN (09:33)
[2021-05-26] MEDS ORDERED: ONDANSETRON 4 MG/2 ML VIAL IVP PRN (09:33)
[2021-05-26] MEDS ORDERED: HYDROmorphone 1 MG/ML 1 ML SYRINGE IVP PRN (09:33)
[2021-05-26] MEDS ORDERED: HYDROcodone/APAP 15 ML SOLUTION PO PRN (09:33)
[2021-05-26] MEDS ORDERED: HYOSCYAMINE ORAL DROPS 1.875 MG/15 ML BOTTLE PO PRN (09:33)
[2021-05-26] MEDS ORDERED: SIMETHICONE 40 MG/0.6 ML DROPS 2,000 MG/30 ML BOTTLE PO PRN (09:33)
[2021-05-26] MEDS ORDERED: diphenhydrAMINE 50 MG/ML 1 ML VIAL IVP PRN (09:33)
--- NOTE | 2021-05-26 09:40 | P.OP ---
Date of Procedure: 05/26/21 Preoperative Diagnosis: Morbid obesity, BMI 66 Postoperative Diagnosis: Morbid obesity, BMI 66 Procedure(s) Performed: Laparoscopic sleeve gastrectomy Anesthesia: MAC Surgeon: Carter Richard Pathology: other (Stomach) Condition: stable Disposition: PACU Description of Procedure: The patient was placed on the operating room table in the supine position. She received general anesthesia and then was placed in dorsal lithotomy position. Her abdomen was prepped and draped in sterile fashion. The skin incision sites were anesthetized 1% local Xylocaine. And then the skin was incised with an 11 blade in the left lateral position. Using a blade less trocar under direct visualization the peritoneal cavity was entered. The abdomen was insufflated and then a 5 mm laparoscope was placed into the peritoneal cavity. A 5 mm trocar was placed in the right epigastric, and right lateral position. A 15 mm trocar was placed in the supra-umbilical position and another 5 mm trocar was placed in the left lateral position. The left lateral lobe of the liver was retracted. The stomach was visualized. The greater curvature of the stomach was then dissected using the Harmonic scissors. The dissection occurred approximately 5 cm from the pylorus to the level of the left jaylen. There was no hiatal hernia seen. At this point a 40-Ecuadorean bougie dilator was placed the oropharynx and passed into the esophagus and into the stomach by the COASTAL/HARBOR DEFENSE OFFICER. The sleeve gastrectomy was performed by using the powered echelon stapler with a seam guard buttress material. Sequential firings of the stapler were performed. The gastric remnant was then brought out through the 15 mm trocar site. The dilator was withdrawn. And a orogastric tube was replaced into the stomach. The stomach was insufflated with 200 mL of methylene blue normal saline. There was no evidence of extravasation. The abdomen was irrigated there is no bleeding seen. The Mansoor-Pamela device was used to close the 15 mm trocar with 0 Vicryl. Skin was closed with interrupted 3-0 Monocryl sutures once the trochars withdrawn. Dermabond dressing was applied. Patient was sent to recovery in stable condition.
--- NOTE | 2021-05-26 09:42 | P.GSHP ---
History of Present Illness H&P Date: 05/26/21 Chief Complaint: Morbid obesity This is a 36-year-old male who is morbidly obese. His BMI 66. He presents today for sleeve gastrectomy. Patient's aware the risks of surgery including injury stomach liver spleen and small bowel. Past Medical History Past Medical History: Asthma, GERD/Reflux, Osteoarthritis (OA) Additional Past Medical History / Comment(s): No medication use for Asthma. Varicose veins. History of Any Multi-Drug Resistant Organisms: None Reported Past Surgical History: Appendectomy, Hernia Repair Additional Past Surgical History / Comment(s): Distended bowel at 1 month old, had surgery. EGD. 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 Past Anesthesia/Blood Transfusion Reactions: Previous Problems w/ Anesthesia Additional Past Anesthesia/Blood Transfusion Reaction / Comment(s): "Blood oxygen low coming out after hernia surgery." Smoking Status: Former smoker - Past Family History Father Family Medical History: Dementia, Pulmonary Embolus Medications and Allergies Home Medications Medication Instructions Recorded Confirmed Type Omeprazole 20 mg PO DAILY 11/07/20 05/22/21 History Cholecalciferol [Vitamin D3 (25 25 mcg PO DAILY 11/18/20 05/22/21 History Mcg = 1000 Iu)] Allergies Allergy/AdvReac Type Severity Reaction Status Date / Time cat dander Allergy Swelling Verified 05/26/21 07:01 Surgical - Exam Vital Signs Temp Pulse Resp BP Pulse Ox 97.0 F L 95 16 153/69 95 05/26/21 07:10 05/26/21 07:10 05/26/21 07:10 05/26/21 07:10 05/26/21 07:10 - General well developed, well nourished, no distress - Eyes PERRL - ENT normal pinna - Neck no masses - Respiratory normal expansion - Cardiovascular Rhythm: regular - Abdomen Abdomen: soft Assessment and Plan Assessment: Morbid obesity, BMI 66 We'll perform screening sleeve gastrectomy.
[2021-05-26] MEDS ORDERED: KETOROLAC 15 MG/ML 1 ML VIAL ONE (09:48)
[2021-05-26] MEDS ORDERED: KETOROLAC 15 MG/ML 1 ML VIAL IVP SCH (12:00)
[2021-05-26] MEDS: 0.9% NACL WITH KCL 20 MEQ/L 1,000 ML IV SCH ×2 (15:07→23:07)
[2021-05-26] MEDS ORDERED: ceFAZolin 3 GM in SODIUM CHLORIDE 0.9% 100 ML IVPB SCH (16:00)
[2021-05-26] MEDS: ALBUTEROL NEBULIZED 2.5 MG/3 ML INHALATION SCH ×3 (16:55→20:18)
[2021-05-26] MEDS: KETOROLAC 15 MG/ML 1 ML VIAL IVP SCH ×2 (17:08→23:10)
--- NOTE | 2021-05-26 17:24 | P.CONS ---
History of Present Illness - Reason for Consult Consult date: 05/26/21 - History of Present Illness Adilson Armendariz, is a 36-year-old male who was admitted to [facility] by Dr. Richard he underwent sleeve gastrectomy today he was admitted subsequently to medical floor consultation was requested for medical management while hospitalized. Patient has a known history of morbid obesity he his BMI is 66 he also has a known history of asthma, gastroesophageal reflux disease, osteoarthritis, and varicose veins On review of systems patient is alert and oriented 3 in no apparent distress he denies any complaints there is no fever or chills no headache or dizziness no chest pain no shortness of breath no palpitation no cough no nausea or vomiting no abdominal pain no diarrhea no blood in the stools no burning with urination no frequency or urgency and no hematuria, there is no weakness or numbness in any of the extremities no change in vision speech or gait. Past Medical History Past Medical History: Asthma, GERD/Reflux, Osteoarthritis (OA) Additional Past Medical History / Comment(s): No medication use for Asthma. Varicose veins. History of Any Multi-Drug Resistant Organisms: None Reported Past Surgical History: Appendectomy, Hernia Repair Additional Past Surgical History / Comment(s): Distended bowel at 1 month old, had surgery. EGD. 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 Past Anesthesia/Blood Transfusion Reactions: Previous Problems w/ Anesthesia Additional Past Anesthesia/Blood Transfusion Reaction / Comm: "Blood oxygen low coming out after hernia surgery." Smoking Status: Former smoker - Past Family History Father Family Medical History: Dementia, Pulmonary Embolus Medications and Allergies Home Medications Medication Instructions Recorded Confirmed Type Omeprazole 20 mg PO DAILY 11/07/20 05/22/21 History Cholecalciferol [Vitamin D3 (25 25 mcg PO DAILY 11/18/20 05/22/21 History Mcg = 1000 Iu)] Allergies Allergy/AdvReac Type Severity Reaction Status Date / Time cat dander Allergy Swelling Verified 05/26/21 07:01 Physical Exam Vitals: Vital Signs Temp Pulse Pulse Resp BP BP Pulse Ox 05/26/21 12:00 84 16 136/76 96 05/26/21 11:30 84 16 126/76 94 L 05/26/21 11:15 90 16 133/77 97 05/26/21 11:00 79 16 140/77 99 05/26/21 10:45 84 15 129/83 92 L 05/26/21 10:30 83 16 135/82 98 05/26/21 10:15 77 16 140/64 98 05/26/21 10:00 76 18 138/77 97 05/26/21 09:45 79 18 148/69 99 05/26/21 09:30 80 18 161/71 99 05/26/21 09:23 97.6 F 87 18 157/82 100 05/26/21 07:10 97.0 F L 95 16 153/69 95 Intake and Output 05/25/21 05/26/21 05/26/21 22:59 06:59 14:59 Intake Total 1300 Output Total 5 Balance 1295 Intake: IV 1300 Output: Estimated Blood Loss 5 Other: Weight 239.1 kg In general patient is alert and oriented x 3 in no distress HEENT head normocephalic and atraumatic Neck is supple no JVD no goiter no lymphadenopathy no carotid bruit Chest examination is clear to auscultation no crackles no wheezing Cardiac exam reveals regular heart sounds S1 and S2 no gallops no murmurs Abdomen is soft nontender no organomegaly with normal bowel sounds Extremity exam reveals no edema no cyanosis or clubbing Neurological examination reveals no gross focal deficits Assessment and Plan Plan: Morbid obesity status post sleeve gastrectomy today Underlying history of asthma stable at this time Underlying history of gastroesophageal reflux disease Underlying history of osteoarthritis Medication and labs were reviewed Will check CBC and CMP and a.m. tomorrow Continue current management otherwise
[2021-05-26] MEDS: ENOXAPARIN 40 MG/0.4 ML SYRINGE SQ SCH (22:15)
[2021-05-27] MEDS: 0.9% NACL WITH KCL 20 MEQ/L 1,000 ML IV SCH (05:27)
[2021-05-27] MEDS: KETOROLAC 15 MG/ML 1 ML VIAL IVP SCH ×3 (05:27→17:16)
[2021-05-27] MEDS: LACTATED RINGERS 1,000 ML IV SCH (05:29)
[2021-05-27 07:37] LABS: Basophils % (A) 0 %; Eosinophils # (A) 0.1 k/uL (0-0.7); Eosinophils % (A) 1 %; HCT 40.7 % (39.0-53.0); HGB 13.4 gm/dL (13.0-17.5); Lymphocytes # (A) 2.1 k/uL (1.0-4.8); Lymphocytes % (A) 20 %; MCH 29.3 pg (25.0-35.0); MCHC 32.9 g/dL (31.0-37.0); MCV 89.1 fL (80.0-100.0); Mean Platelet Volume 7.3; Monocytes # (A) 0.5 k/uL (0-1.0); Monocytes % (A) 5 %; Neutrophils # (A) 7.6 k/uL (1.3-7.7); Neutrophils % (A) 72 %; Platelet Count 300 k/uL (150-450); RBC 4.57 m/uL (4.30-5.90); RDW 12.8 % (11.5-15.5); WBC 10.6 k/uL (3.8-10.6)
[2021-05-27 07:58] LABS: ALT 34 U/L (4-49); AST 29 U/L (17-59); African American GFR (CKD) >90 (>60 ml/min/1.73 sqM); Albumin 3.5 g/dL (3.5-5.0); Albumin/Globulin Ratio 1.2; Alkaline Phosphatase 75 U/L (38-126); Anion Gap 15 mmol/L; Blood Urea Nitrogen 4 mg/dL (9-20); Calcium 8.6 mg/dL (8.4-10.2); Carbon Dioxide 17 mmol/L (22-30); Chloride 107 mmol/L (98-107); Globulin 2.9 g/dL; Glucose 78 mg/dL (74-99); Non-African American GFR(CKD) >90 (>60 ml/min/1.73 sqM); Phosphorus 3.7 mg/dL (2.5-4.5); Sodium 139 mmol/L (137-145); Total Bilirubin 0.5 mg/dL (0.2-1.3); Total Protein 6.4 g/dL (6.3-8.2)
[2021-05-27] MEDS: ALBUTEROL NEBULIZED 2.5 MG/3 ML INHALATION SCH ×4 (08:25→21:26)
[2021-05-27] MEDS: ENOXAPARIN 40 MG/0.4 ML SYRINGE SQ SCH ×2 (08:27→22:22)
[2021-05-27] MEDS: MULTIVITAMINS, THERA LIQUID 237 ML BOTTLE PO SCH (08:27)
[2021-05-27] MEDS: PANTOPRAZOLE 40 MG/10 ML VIAL IV SCH (08:27)
[2021-05-27] MEDS: 1: THIAMINE 100 MG, FOLIC ACID 1 MG, POTASSIUM CHLORIDE 20 MEQ in SODIUM CHLORIDE 0.9% 1 IVPB SCH ×10 (09:24→21:14)
--- NOTE | 2021-05-27 10:16 | FL ---
EXAMINATION TYPE: FL UGI DATE OF EXAM: 05/27/2021 LIMITED UGI: CLINICAL HISTORY: Morbid Obesity, gastric sleeve surgery yesterday. TECHNIQUE: Limited esophagram is performed utilizing 25 oz of Isovue-370. A total of 76 seconds of f luoroscopic time was utilized during procedure and 40 images obtained. COMPARISON: None. FINDINGS: Exam slightly suboptimal due to large body habitus. The patient swallowed contrast without difficulty or delay. Esophageal peristalsis and motility are within normal limits. There is good fl ow of contrast along the diaphragmatic hiatus into proximal stomach and mild delay in flow into gastr ic sleeve group proximal anastomosis. Patient has 2 episodes of vomiting with gastroesophageal reflux There is moderate delay in flow from distal sleeve into pylorus and duodenal sweep. Patient again vo mits causing reflux of contrast back through gastric sleeve. There is no evidence of contrast extrava sation to suggest leak. Small amount of free air under right hemidiaphragm presumed postsurgical. IMPRESSION: Mild to moderate obstruction status post recent gastric sleeve surgery causing 2-3 episod es of vomiting and gastroesophageal reflux. No obvious leak identified.
[2021-05-27] MEDS: DEXAMETHASONE SOD PHOSPHATE 4 MG/ML 1 ML VIAL IV SCH ×3 (11:21→22:22)
[2021-05-27 12:25] VITALS: BMI 65.9
--- NOTE | 2021-05-27 13:26 | P.PN ---
Subjective Progress Note Date: 05/27/21 CHIEF COMPLAINT: Morbid obesity HISTORY OF PRESENT ILLNESS: Patient is postop day #1 status post laparoscopic sleeve gastrectomy. He reports that his pain is controlled. Patient's upper GI shows mild to moderate obstruction status post recent gastric sleeve surgery causing 2-3 episodes of vomiting and gastroesophageal reflux. No obvious leak identified. Afebrile. WBC 10.6 hemoglobin 13.4 creatinine 0.56 Patient seen and examined with Dr. rojas PHYSICAL EXAM: VITAL SIGNS: Reviewed. GENERAL: Well-developed in no acute distress. HEENT: No sclera icterus. Extraocular movements grossly intact. Moist buccal mucosa. Head is atraumatic, normocephalic. ABDOMEN: Soft. Nondistended. NEUROLOGIC: Alert and oriented. Cranial nerves II through XII grossly intact. ASSESSMENT: 1. Morbid obesity status post laparoscopic sleeve gastrectomy 2. Mild to moderate obstruction on upper GI PLAN: -Start dexamethasone 4 mg IV every 6 for mild to moderate obstruction -Start Romy clear liquids -Encourage patient to ambulate -PT OT on consult -Encourage patient to use incentive spirometer -Continue pain medication as needed -Continue IV fluids -Continue abdominal binder -GI prophylaxis Protonix and DVT prophylaxis Lovenox Physician Costume Designer note has been reviewed by physician. Signing provider agrees with the documented findings, assessment, and plan of care. Objective - Vital Signs Vital signs: Vital Signs Temp 97.5 F L 05/27/21 06:55 Pulse 76 05/27/21 12:01 Resp 17 05/27/21 06:55 BP 132/77 05/27/21 06:55 Pulse Ox 95 05/27/21 08:26 Intake & Output 05/26/21 05/27/21 05/27/21 18:59 06:59 18:59 Intake Total 2450 250 Output Total 5 1500 Balance 2445 -1250 Weight 239.1 kg 239.1 kg Intake: IV 1950 Intake, IV Titration 450 Amount 0.9% NaCl with KCl 20 Meq 450 /l 1,000 ml @ 150 mls/hr IV .Q6H40M TREMAYNE Rx#: [id number] Oral 50 250 Output: Urine 1500 Estimated Blood Loss 5 Other: Voiding Method Toilet # Voids 1 1 - Labs CBC & Chem 7: 05/27/21 06:39 05/27/21 06:39 Labs: Abnormal Lab Results - Last 24 Hours (Table) 05/27/21 Range/Units 06:39 Carbon Dioxide 17 L (22-30) mmol/L BUN 4 L (9-20) mg/dL Creatinine 0.56 L (0.66-1.25) mg/dL
--- NOTE | 2021-05-27 17:19 | P.PN ---
Subjective Progress Note Date: 05/27/21 Adilson Armendariz, is a 36-year-old male who was admitted to [facility] by Dr. Richard he underwent sleeve gastrectomy today he was admitted subsequently to medical floor consultation was requested for medical management while hospitalized. Patient has a known history of morbid obesity he his BMI is 66 he also has a known history of asthma, gastroesophageal reflux disease, osteoarthritis, and varicose veins On review of systems patient is alert and oriented 3 in no apparent distress he denies any complaints there is no fever or chills no headache or dizziness no chest pain no shortness of breath no palpitation no cough no nausea or vomiting no abdominal pain no diarrhea no blood in the stools no burning with urination no frequency or urgency and no hematuria, there is no weakness or numbness in any of the extremities no change in vision speech or gait. On 05/27/2021 Patient was seen and examined on the medical floor, he is alert and oriented x 3 in no distress, he denies any complaints there is no fever or chills no headache or dizziness no chest pain no shortness of breath no palpitation no cough no nausea or vomiting no abdominal pain no diarrhea no blood in the stools no burning with urination no frequency or urgency and no hematuria, there is no weakness or numbness in any of the extremities no change in vision speech or gait. Patient had upper GI that revealed [id number] obstruction post gastric sleeve surgery, he was started on IV dexamethasone, and was kept on clear liquid diet Will monitor closely Objective - Vital Signs Vital signs: Vital Signs Temp 97.5 F L 05/27/21 06:55 Pulse 76 05/27/21 08:36 Resp 17 05/27/21 06:55 BP 132/77 05/27/21 06:55 Pulse Ox 95 05/27/21 08:26 Intake & Output 05/26/21 05/27/21 05/27/21 18:59 06:59 18:59 Intake Total 2450 250 Output Total 5 1500 Balance 2445 -1250 Weight 239.1 kg Intake: IV 1950 Intake, IV Titration 450 Amount 0.9% NaCl with KCl 20 Meq 450 /l 1,000 ml @ 150 mls/hr IV .Q6H40M TREMAYNE Rx#: [id number] Oral 50 250 Output: Urine 1500 Estimated Blood Loss 5 Other: Voiding Method Toilet # Voids 1 - Exam In general patient is alert and oriented x 3 in no distress HEENT head normocephalic and atraumatic Neck is supple no JVD no goiter no lymphadenopathy no carotid bruit Chest examination is clear to auscultation no crackles no wheezing Cardiac exam reveals regular heart sounds S1 and S2 no gallops no murmurs Abdomen is soft nontender no organomegaly with normal bowel sounds Extremity exam reveals no edema no cyanosis or clubbing Neurological examination reveals no gross focal deficits - Labs CBC & Chem 7: 05/27/21 06:39 05/27/21 06:39 Labs: Abnormal Lab Results - Last 24 Hours (Table) 05/27/21 Range/Units 06:39 Carbon Dioxide 17 L (22-30) mmol/L BUN 4 L (9-20) mg/dL Creatinine 0.56 L (0.66-1.25) mg/dL Assessment and Plan Plan: Morbid obesity status post sleeve gastrectomy done yesterday by Dr. Richard Underlying history of asthma stable at this time Underlying history of gastroesophageal reflux disease Underlying history of osteoarthritis Episodes of nausea and vomiting post surgery upper GI reveals evidence of mild to moderate obstruction patient was started on IV dexamethasone, I will add Accu-Chek and insulin to sliding scale as needed Medication and labs were reviewed Will check CBC and CMP and a.m. tomorrow Continue current management otherwise
[2021-05-27 21:09] LABS: Glucose,Whole Blood 98 mg/dL (75-99)
[2021-05-27] MEDS: INSULIN ASPART (NovoLOG) 100 UNIT/ML VIAL SQ SCH (21:17)
[2021-05-28] MEDS: KETOROLAC 15 MG/ML 1 ML VIAL IVP SCH ×2 (00:06→05:15)
[2021-05-28] MEDS: DEXAMETHASONE SOD PHOSPHATE 4 MG/ML 1 ML VIAL IV SCH ×2 (05:18→12:12)
[2021-05-28] MEDS: 1: THIAMINE 100 MG, FOLIC ACID 1 MG, POTASSIUM CHLORIDE 20 MEQ in SODIUM CHLORIDE 0.9% 1 IVPB SCH ×10 (05:23→05:27)
[2021-05-28] MEDS: LACTATED RINGERS 1,000 ML IV SCH (06:29)
[2021-05-28 07:12] LABS: Glucose,Whole Blood 110 mg/dL (75-99)
[2021-05-28] MEDS: INSULIN ASPART (NovoLOG) 100 UNIT/ML VIAL SQ SCH ×2 (07:14→12:09)
[2021-05-28] MEDS: ALBUTEROL NEBULIZED 2.5 MG/3 ML INHALATION SCH ×2 (07:32→11:26)
[2021-05-28 07:34] VITALS: BP 121/66; PULSE 67; RESP 18; TEMP 97.4
[2021-05-28] MEDS: ENOXAPARIN 40 MG/0.4 ML SYRINGE SQ SCH (08:08)
[2021-05-28] MEDS: PANTOPRAZOLE 40 MG/10 ML VIAL IV SCH (08:08)
[2021-05-28] MEDS: MULTIVITAMINS, THERA LIQUID 237 ML BOTTLE PO SCH (08:09)
[2021-05-28 09:09] LABS: Basophils # (A) 0.02 X 10*3/uL (0.00-0.10); Basophils % (A) 0.2 %; Eosinophils # (A) 0 X 10*3/uL (0.04-0.35); Eosinophils % (A) 0 %; HGB 13.1 g/dL (13.0-17.0); Lymphocytes # (A) 0.93 X 10*3/uL (0.90-5.00); Lymphocytes % (A) 8.4 %; MCH 28.6 pg (27.0-32.0); MCHC 32.8 g/dL (32.0-37.0); MCV 87.3 fL (80.0-97.0); Mean Platelet Volume 10.2 fL (9.5-12.2); Monocytes # (A) 0.22 X 10*3/uL (0.20-1.00); Neutrophils # (A) 9.84 X 10*3/uL (1.80-7.70); Neutrophils % (A) 88.9 %; Platelet Count 317 X 10*3/uL (140-440); RBC 4.58 X 10*6/uL (4.40-5.60); RDW 12.8 % (11.5-14.5); WBC 11.06 X 10*3/uL (4.50-10.00)
--- NOTE | 2021-05-28 11:25 | P.PN ---
Subjective Progress Note Date: 05/28/21 Adilson Armendariz, is a 36-year-old male who was admitted to [facility] by Dr. Richard he underwent sleeve gastrectomy today he was admitted subsequently to medical floor consultation was requested for medical management while hospitalized. Patient has a known history of morbid obesity he his BMI is 66 he also has a known history of asthma, gastroesophageal reflux disease, osteoarthritis, and varicose veins On review of systems patient is alert and oriented 3 in no apparent distress he denies any complaints there is no fever or chills no headache or dizziness no chest pain no shortness of breath no palpitation no cough no nausea or vomiting no abdominal pain no diarrhea no blood in the stools no burning with urination no frequency or urgency and no hematuria, there is no weakness or numbness in any of the extremities no change in vision speech or gait. On 05/27/2021 Patient was seen and examined on the medical floor, he is alert and oriented x 3 in no distress, he denies any complaints there is no fever or chills no headache or dizziness no chest pain no shortness of breath no palpitation no cough no nausea or vomiting no abdominal pain no diarrhea no blood in the stools no burning with urination no frequency or urgency and no hematuria, there is no weakness or numbness in any of the extremities no change in vision speech or gait. Patient had upper GI that revealed [id number] obstruction post gastric sleeve surgery, he was started on IV dexamethasone, and was kept on clear liquid diet Will monitor closely On 02/25/2021 patient is alert and oriented 3. Patient has been tolerating clear liquid diet no nausea or vomiting. Thus case with surgical services plan for patient discharge today. At this time patient denies chest pain or shortness of breath. Patient denies nausea vomiting or diarrhea. Patient denies any urinary burning or frequency Objective - Vital Signs Vital signs: Vital Signs Temp 97.4 F L 05/28/21 07:33 Pulse 67 05/28/21 07:33 Resp 18 05/28/21 07:33 BP 121/66 05/28/21 07:33 Pulse Ox 93 L 05/28/21 07:33 Intake & Output 05/27/21 05/28/21 05/28/21 18:59 06:59 18:59 Intake Total 865 Balance 865 Weight 239.1 kg Intake: Intake, IV Titration 815 Amount 0.9% NaCl with KCl 20 Meq 815 /l 1,000 ml @ 100 mls/hr IVPB .BY DURATION TREMAYNE Rx# :[id number] Oral 50 Other: Voiding Method Toilet # Voids 1 3 - Exam In general patient is alert and oriented x 3 in no distress HEENT head normocephalic and atraumatic Neck is supple no JVD no goiter no lymphadenopathy no carotid bruit Chest examination is clear to auscultation no crackles no wheezing Cardiac exam reveals regular heart sounds S1 and S2 no gallops no murmurs Abdomen is soft nontender no organomegaly with normal bowel sounds Extremity exam reveals no edema no cyanosis or clubbing Neurological examination reveals no gross focal deficits - Labs CBC & Chem 7: 05/28/21 06:04 05/27/21 06:39 Labs: Abnormal Lab Results - Last 24 Hours (Table) 05/28/21 05/28/21 Range/Units 06:04 07:11 WBC 11.06 H (4.50-10.00) X 10*3/uL Immature Gran # 0.05 H (0.00-0.04) X 10*3/uL Neutrophils # 9.84 H (1.80-7.70) X 10*3/uL Eosinophils # 0 L (0.04-0.35) X 10*3/uL POC Glucose (mg/dL) 110 H (75-99) mg/dL Assessment and Plan Plan: Morbid obesity status post sleeve gastrectomy done yesterday by Dr. Richard Underlying history of asthma stable at this time Underlying history of gastroesophageal reflux disease Underlying history of osteoarthritis Episodes of nausea and vomiting post surgery upper GI reveals evidence of mild to moderate obstruction patient was started on IV dexamethasone, I will add Accu-Chek and insulin to sliding scale as needed Medication and labs were reviewed Plans for discharge home today per surgical services
[2021-05-28 11:56] LABS: Glucose,Whole Blood 104 mg/dL (75-99)
--- NOTE | 2021-05-28 11:59 | P.DS ---
Providers Date of admission: 05/26/21 06:31 Expected date of discharge: 05/28/21 Attending physician: Carter Richard Consults: 05/26/21 09:37 Consult Physician Routine Consulting Provider: Inga Duenas Consult Reason/Comments: Medical management Do you want consulting provider notified?: Yes Primary care physician: Stated None Hospital Course: Discharge diagnosis 1. Morbid obesity status post laparoscopic sleeve gastrectomy 2. Mild to moderate obstruction on upper GI Hospital course This is a 36-year-old male with a known history of morbid obesity. He is status post laparoscopic sleeve gastrectomy. His upper GI did show mild to moderate obstruction. He was started on dexamethasone. Patient is tolerating the Romy clear liquid diet. He denies any nausea vomiting. He denies any difficulty swallowing. He is having flatus. His pain is controlled. He is up and ambulating. He is afebrile. He is stable for discharge. Please refer to chart for any further details. Physician Endoscopy Technician note has been reviewed by physician. Signing provider agrees with the documented findings, assessment, and plan of care. Patient Condition at Discharge: Stable Plan - Discharge Summary Discharge Rx Participant: Yes New Discharge Prescriptions: New Simethicone 40 mg/0.6 ml Drops [Mylicon Drops] 40 mg PO PCHS PRN #30 ml PRN Reason: Gas HYDROcodone/APAP 5-325MG [[place] 5-325] 1 tab PO Q6HR PRN 2 Days #5 tab PRN Reason: Pain bisacodyL [Dulcolax] 5 mg PO DAILY PRN #10 tab PRN Reason: Constipation Omeprazole [PriLOSEC] 40 mg PO DAILY #30 cap Ondansetron Odt [Zofran Odt] 4 mg PO Q8HR PRN #9 tab PRN Reason: Nausea Continue Cholecalciferol [Vitamin D3 (25 Mcg = 1000 Iu)] 25 mcg PO DAILY Discontinued Omeprazole 20 mg PO DAILY Discharge Medication List Cholecalciferol [Vitamin D3 (25 Mcg = 1000 Iu)] 25 mcg PO DAILY 11/18/20 [History] HYDROcodone/APAP 5-325MG [[place] 5-325] 1 tab PO Q6HR PRN 2 Days #5 tab 05/28/21 [Rx] Omeprazole [PriLOSEC] 40 mg PO DAILY #30 cap 05/28/21 [Rx] Ondansetron Odt [Zofran Odt] 4 mg PO Q8HR PRN #9 tab 05/28/21 [Rx] Simethicone 40 mg/0.6 ml Drops [Mylicon Drops] 40 mg PO PCHS PRN #30 ml 05/28/21 [Rx] bisacodyL [Dulcolax] 5 mg PO DAILY PRN #10 tab 05/28/21 [Rx] Follow up Appointment(s)/Referral(s): Inga Duenas MD [STAFF PHYSICIAN] [facility] [place] [facility] [place] - 1 Week Patient Instructions/Handouts: Nutrition after Bariatric Surgery (DC), Laparoscopic Sleeve Gastrectomy (DC) Activity/Diet/Wound Care/Special Instructions: No driving while taking [place] No lifting over 10 pounds You may shower. No soaking or tub baths for 2 weeks Very light activity until you are reevaluated at your follow up appointment with your surgeon No straws or carbonated beverages Discharge Disposition: HOME SELF-CARE
[2021-05-28 17:31] LABS: African American GFR (CKD) 148.5 (60.0-200.0); Albumin 3.9 g/dL (3.8-4.9); Albumin/Globulin Ratio 1.49 (1.60-3.17); Anion Gap 18.7 mmol/L (4.00-12.00); BUN/Creat Ratio 8.34 Ratio (12.00-20.00); Blood Urea Nitrogen 5.1 mg/dL (9.0-27.0); Calcium 8.8 mg/dL (8.7-10.3); Carbon Dioxide 14.7 mmol/L (21.6-31.8); Globulin 2.6 g/dL (1.6-3.3); Non-African American GFR(CKD) 128.1 (60.0-200.0); Potassium 4.8 mmol/L (3.5-5.5); Total Bilirubin 0.4 mg/dL (0.30-1.20); Total Protein 6.4 g/dL (6.2-8.2)
--- NOTE | 2021-06-02 10:00 | CDI ---
Documentation Clarification Form Date: 06/02/2021 09:44:55 AM From: Maame Hurtado RN CCDS Admit Date: 05/26/2021 06:31:00 AM Patient Name: Adilson Armendariz Visit Number: [id number] Discharge Date: 05/28/2021 01:07:00 PM ATTENTION: The Clinical Documentation Specialists (CDI) and [facility] Coding Staff appreciate your assistance in clarifying documentation. Please respond to the clarification below the line at the bottom and electronically sign. The CDI & [facility] Coding staff will review the response and follow-up if needed. Please note: Queries are made part of the Legal Health Record. If you have any questions, please contact the author of this message via ITS. Dr. Carter Richard Mild to moderate obstruction is documented progress note, 05/27 and discharge summary 05/28 and patient had Laparoscopic sleeve gastrectomy, 05/26. Additional clarification is requested regarding the relationship, if any, that exists between the diagnosis and the procedure. Patients Admitting Diagnosis: Morbid obesity, BMI 66 Post-Operative Diagnosis: Morbid obesity, BMI 66 Procedure performed: Laparoscopic sleeve gastrectomy History/Risk Factors: 36-year-old male presents to [facility] for an elective sleeve gastrectomy. Medical History: Gerd/Reflux Clinical Indicators: UGI 05/27: Mild to moderate obstruction status post recent gastric sleeve surgery causing 2-3 episodes of vomiting and gastroesophageal reflux. Treatment: 05/26 Dexamethasone 4mg IV x1, 05/27 d/c 05/28 Dexamethasone 4mg IV Q6H. Consults: Medicine 05/27 progress note, Episodes of nausea and vomiting post- surgery upper GI reveals evidence of mild to moderate obstruction patient was started on IV dexamethasone. What relationship, if any, exists between the diagnosis of mild to moderate obstruction and the procedure: [ ] Mild to moderate obstruction is a complication of surgical procedure [ x ] Mild to moderate obstruction is an expected outcome of the surgical procedure [ ] Other please specify ____ [ ] Unable to determine (Template Last Revised: October 2020) MTDD
== END 2021-05-28 13:07 | disposition home or self-care (01) | DRG 620 ==
LOC: 2ORMAIN 06:31 → 4SSUR 13:48
PROVIDERS: ADMIT Surgery; ATTEND Surgery
PROC: 0DB64Z3 Excision of Stomach, Percutaneous Endoscopic Approach, Vertical (ICD-10-PCS; principal; 2021-05-26 07:40)
DX: E66.01 Morbid (severe) obesity due to excess calories (principal); K56.609 Unspecified intestinal obstruction, unspecified as to partial versus complete obstruction; Z68.44 Body mass index [BMI] 60.0-69.9, adult; K21.9 Gastro-esophageal reflux disease without esophagitis; J45.909 Unspecified asthma, uncomplicated; M19.90 Unspecified osteoarthritis, unspecified site; J30.81 Allergic rhinitis due to animal (cat) (dog) hair and dander; I83.90 Asymptomatic varicose veins of unspecified lower extremity; Z87.891 Personal history of nicotine dependence; Z90.49 Acquired absence of other specified parts of digestive tract; Z87.19 Personal history of other diseases of the digestive system
CPT/HCPCS: 74240; 80053; 83735; 84100; 85025; 88307; 94640; 94760; 94762

== ENCOUNTER → 2021-05-30 | Outpatient (CLI) | payer OTHER ==
[2021-05-30 11:15] VITALS: BP 133/80; PULSE 86; TEMP 98.1; BMI 65.7
== END ==
LOC: BARWHC3 09:56
PROVIDERS: ATTEND Surgery
DX: E66.01 Morbid (severe) obesity due to excess calories (principal); Z98.84 Bariatric surgery status; Z68.44 Body mass index [BMI] 60.0-69.9, adult; Z87.891 Personal history of nicotine dependence; Z91.048 Other nonmedicinal substance allergy status
CPT/HCPCS: 99211

== ENCOUNTER → 2021-06-02 | Outpatient (CLI) | payer OTHER ==
--- NOTE | 2021-06-02 14:25 | P.HPBAR ---
Bariatric H&P - History & Physicial H&P Date: 06/02/21 History & Physicial: Visit/CC: surg f/u Patient initial contact: Initial weight: 244.94 kg Initial weight in pounds: 540.00 Height: 6 ft 3 in Initial BMI: 67.5 Last weight: Current weight: 237.229 kg Current weight in pounds: 523.00 Current BMI: 65.3 [place] body weight (based on NIH guidelines): 88.904 kg Excess body weight loss: 4.9% The patient is a 36 year-old M who presents for Bariatric Assessment. Patient presents today for postoperative visit. He underwent sleeve gastrectomy last week. He feels well. He's had no significant problems. He has had some weight loss. Past Medical History Past Medical History: Asthma, GERD/Reflux, Osteoarthritis (OA) Additional Past Medical History / Comment(s): No medication use for Asthma. Varicose veins. History of Any Multi-Drug Resistant Organisms: None Reported Past Surgical History: Appendectomy, Bariatric Surgery, Hernia Repair Additional Past Surgical History / Comment(s): Distended bowel at 1 month old, had surgery. EGD. 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 sleeve gastrectomy 05-26-21 Past Anesthesia/Blood Transfusion Reactions: Previous Problems w/ Anesthesia Additional Past Anesthesia/Blood Transfusion Reaction / Comm: "Blood oxygen low coming out after hernia surgery." Past Psychological History: No Psychological Hx Reported Smoking Status: Former smoker Past Alcohol Use History: None Reported Additional Past Alcohol Use History / Comment(s): Smoked for a few months 3 yrs ago. Past Drug Use History: None Reported - Past Family History Father Family Medical History: Dementia, Pulmonary Embolus Surgical - Exam Vital Signs Temp Pulse Resp BP 98.6 F 87 16 129/81 06/02/21 13:50 06/02/21 13:50 06/02/21 13:50 06/02/21 13:50 - General well developed, well nourished, no distress - Eyes PERRL - ENT normal pinna - Neck no masses - Respiratory normal expansion - Cardiovascular Rhythm: regular - Abdomen Abdomen: soft, non tender Bariatric Assessment & Plan Plan: Resolving morbid obesity. Patient will follow-up in 2 weeks. Bariatric Checklist Checklist: Plan: Checklist: EGD: 1. Hiatal hernia: 2. H. Pylori: HgbA1c: Vitamin D: Smoking: Primary care physician referral: Dr. Duenas Psychiatry clearance: Cardiology clearance: Sleep study: Diet journal: VTE risk score: VTE risk level: Rehab needs at discharge:
[2021-06-02 15:12] VITALS: BP 129/81; PULSE 87; RESP 16; TEMP 98.6; BMI 65.3
== END ==
LOC: BARWHC3 13:36
PROVIDERS: ATTEND Surgery
DX: E66.01 Morbid (severe) obesity due to excess calories (principal); J45.909 Unspecified asthma, uncomplicated; M19.90 Unspecified osteoarthritis, unspecified site; Z98.84 Bariatric surgery status; Z87.891 Personal history of nicotine dependence; Z91.09 Other allergy status, other than to drugs and biological substances; Z68.44 Body mass index [BMI] 60.0-69.9, adult
CPT/HCPCS: 97803; 99211

== ENCOUNTER → 2021-06-16 | Outpatient (CLI) | payer OTHER ==
--- NOTE | 2021-06-16 14:00 | P.HPBAR ---
Bariatric H&P - History & Physicial H&P Date: 06/16/21 History & Physicial: Visit/CC: Patient initial contact: Initial weight: 244.94 kg Initial weight in pounds: Height: Initial BMI: Last weight: 523 pounds Current weight: 506 pounds Current weight in pounds: Current BMI: [place] body weight (based on NIH guidelines): Excess body weight loss: The patient is a 36 year-old M who presents for Bariatric Assessment. Patient is postop sleeve gastrectomy. He has had excellent weight loss. He feels well. He's had some mild GERD. Past Medical History Past Medical History: Asthma, GERD/Reflux, Osteoarthritis (OA) Additional Past Medical History / Comment(s): No medication use for Asthma. Varicose veins. History of Any Multi-Drug Resistant Organisms: None Reported Past Surgical History: Appendectomy, Bariatric Surgery, Hernia Repair Additional Past Surgical History / Comment(s): Distended bowel at 1 month old, had surgery. EGD. 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 sleeve gastrectomy 05-26-21 Past Anesthesia/Blood Transfusion Reactions: Previous Problems w/ Anesthesia Additional Past Anesthesia/Blood Transfusion Reaction / Comm: "Blood oxygen low coming out after hernia surgery." Past Psychological History: No Psychological Hx Reported Smoking Status: Former smoker Past Alcohol Use History: None Reported Additional Past Alcohol Use History / Comment(s): Smoked for a few months 3 yrs ago. Past Drug Use History: None Reported - Past Family History Father Family Medical History: Dementia, Pulmonary Embolus Surgical - Exam - General well developed, well nourished, no distress - Eyes PERRL - ENT normal pinna - Neck no masses - Respiratory normal expansion - Cardiovascular Rhythm: regular - Abdomen Abdomen: soft, non tender Bariatric Assessment & Plan Plan: Status post sleeve gastrectomy. Patient's girth is minimal OBSERVED. Follow-up in 4 weeks. Bariatric Checklist Checklist: Plan: Checklist: EGD: 1. Hiatal hernia: 2. H. Pylori: HgbA1c: Vitamin D: Smoking: Primary care physician referral: Dr. Duenas Psychiatry clearance: Cardiology clearance: Sleep study: Diet journal: VTE risk score: VTE risk level: Rehab needs at discharge:
[2021-06-16 15:34] VITALS: BMI 63.2
[2021-06-16 15:37] VITALS: BP 135/80; PULSE 80; TEMP 98.2
== END ==
LOC: BARWHC3 13:01
PROVIDERS: ATTEND Surgery
DX: Z09 Encounter for follow-up examination after completed treatment for conditions other than malignant neoplasm (principal); K21.9 Gastro-esophageal reflux disease without esophagitis; J45.909 Unspecified asthma, uncomplicated; M19.90 Unspecified osteoarthritis, unspecified site; Z87.891 Personal history of nicotine dependence; Z98.84 Bariatric surgery status; Z91.09 Other allergy status, other than to drugs and biological substances
CPT/HCPCS: 97803; 99211

== ENCOUNTER → 2021-07-28 | Outpatient (CLI) | payer BC, OTHER ==
[2021-07-28 14:54] VITALS: BP 119/78; PULSE 67; TEMP 98.1; BMI 59.2
--- NOTE | 2021-07-28 15:04 | P.HPBAR ---
Bariatric H&P - History & Physicial H&P Date: 07/28/21 History & Physicial: Visit/CC: two month follow up Patient initial contact: Initial weight: 244.94 kg Initial weight in pounds: 540.00 Height: 6 ft 3 in Initial BMI: 67.5 Last weight: Current weight: 215.003 kg Current weight in pounds: 474.00 Current BMI: 59.2 [place] body weight (based on NIH guidelines): 88.904 kg Excess body weight loss: 19.1% The patient is a 36 year-old M who presents for Bariatric Assessment. Patient resents today for better follow-up. He's had some minimal GERD. He is an excellent weight loss. Past Medical History Past Medical History: Asthma, GERD/Reflux, Osteoarthritis (OA) Additional Past Medical History / Comment(s): No medication use for Asthma. Varicose veins. History of Any Multi-Drug Resistant Organisms: None Reported Past Surgical History: Appendectomy, Bariatric Surgery, Hernia Repair Additional Past Surgical History / Comment(s): Distended bowel at 1 month old, had surgery. EGD. 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 sleeve gastrectomy 05-26-21 Past Anesthesia/Blood Transfusion Reactions: Previous Problems w/ Anesthesia Additional Past Anesthesia/Blood Transfusion Reaction / Comm: "Blood oxygen low coming out after hernia surgery." Past Psychological History: No Psychological Hx Reported Smoking Status: Former smoker Past Alcohol Use History: None Reported Additional Past Alcohol Use History / Comment(s): Smoked for a few months 3 yrs ago. Past Drug Use History: None Reported - Past Family History Father Family Medical History: Dementia, Pulmonary Embolus Surgical - Exam Vital Signs Temp Pulse BP 98.1 F 67 119/78 07/28/21 14:50 07/28/21 14:50 07/28/21 14:50 - General well developed, well nourished, no distress - Eyes PERRL - ENT normal pinna - Neck no masses - Respiratory normal expansion - Cardiovascular Rhythm: regular - Abdomen Abdomen: soft, non tender Bariatric Assessment & Plan Plan: Morbid obesity improving. Patient's girth is minimal user. He'll follow-up in 4 weeks. Bariatric Checklist Checklist: Plan: Checklist: EGD: 1. Hiatal hernia: 2. H. Pylori: HgbA1c: Vitamin D: Smoking: Primary care physician referral: Dr. Duenas Psychiatry clearance: Cardiology clearance: Sleep study: Diet journal: VTE risk score: VTE risk level: Rehab needs at discharge:
== END ==
LOC: BARWHC3 13:59
PROVIDERS: ATTEND Surgery
DX: E66.01 Morbid (severe) obesity due to excess calories (principal); J45.909 Unspecified asthma, uncomplicated; M19.90 Unspecified osteoarthritis, unspecified site; Z68.43 Body mass index [BMI] 50.0-59.9, adult; Z98.84 Bariatric surgery status; Z87.891 Personal history of nicotine dependence; Z91.09 Other allergy status, other than to drugs and biological substances
CPT/HCPCS: 99211

== ENCOUNTER → 2021-09-22 | Outpatient (CLI) | payer BC ==
[2021-09-22 13:58] VITALS: BP 116/78; PULSE 99; RESP 20; TEMP 97.9; BMI 55.5
--- NOTE | 2021-09-22 14:32 | P.HPBAR ---
Bariatric H&P - History & Physicial H&P Date: 09/22/21 History & Physicial: Visit/CC: follow up Patient initial contact: Initial weight: 244.94 kg Initial weight in pounds: 540.00 Height: 6 ft 3 in Initial BMI: 67.5 Last weight: Current weight: 201.576 kg Current weight in pounds: 444.40 Current BMI: 55.5 [place] body weight (based on NIH guidelines): 88.904 kg Excess body weight loss: 27.7% The patient is a 36 year-old M who presents for Bariatric Assessment. Patient presents for bariatric follow. He's lost approximately 30 pounds was last visit. He is minimal GERD. Past Medical History Past Medical History: Asthma, GERD/Reflux, Osteoarthritis (OA) Additional Past Medical History / Comment(s): No medication use for Asthma. Varicose veins. History of Any Multi-Drug Resistant Organisms: None Reported Past Surgical History: Appendectomy, Bariatric Surgery, Hernia Repair Additional Past Surgical History / Comment(s): Distended bowel at 1 month old, had surgery. EGD. 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 sleeve gastrectomy 05-26-21 Past Anesthesia/Blood Transfusion Reactions: Previous Problems w/ Anesthesia Additional Past Anesthesia/Blood Transfusion Reaction / Comm: "Blood oxygen low coming out after hernia surgery." Past Psychological History: No Psychological Hx Reported Smoking Status: Former smoker Past Alcohol Use History: None Reported Additional Past Alcohol Use History / Comment(s): Smoked for a few months 3 yrs ago. Past Drug Use History: None Reported - Past Family History Father Family Medical History: Dementia, Pulmonary Embolus Surgical - Exam Vital Signs Temp Pulse Resp BP 97.9 F 99 20 116/78 09/22/21 13:55 09/22/21 13:55 09/22/21 13:55 09/22/21 13:55 - General well developed, well nourished, no distress - Eyes PERRL - ENT normal pinna, normal nares, normal mucosa - Neck no masses - Respiratory normal expansion - Cardiovascular Rhythm: regular - Abdomen Abdomen: soft, non tender Bariatric Assessment & Plan Plan: Morbid obesity. Patient is improving or abuse. His GERD is improving. He'll be observed. He'll follow-up in 4 weeks. Bariatric Checklist Checklist: Plan: Checklist: EGD: 1. Hiatal hernia: 2. H. Pylori: HgbA1c: Vitamin D: Smoking: Primary care physician referral: Dr. Duenas Psychiatry clearance: Cardiology clearance: Sleep study: Diet journal: VTE risk score: VTE risk level: Rehab needs at discharge:
== END ==
LOC: BARWHC3 13:08
PROVIDERS: ATTEND Surgery
DX: E66.01 Morbid (severe) obesity due to excess calories (principal); K21.9 Gastro-esophageal reflux disease without esophagitis; J45.909 Unspecified asthma, uncomplicated; M19.90 Unspecified osteoarthritis, unspecified site; Z68.43 Body mass index [BMI] 50.0-59.9, adult; Z98.84 Bariatric surgery status; Z87.891 Personal history of nicotine dependence; Z91.09 Other allergy status, other than to drugs and biological substances
CPT/HCPCS: 97803; 99211

== ENCOUNTER → 2021-11-03 | Outpatient (CLI) | payer BC ==
[2021-11-03 15:16] VITALS: BP 127/80; PULSE 90; TEMP 98; BMI 51.3
[2021-11-03 23:34] LABS: HCT 48.5 % (39.6-50.0); HGB 15.8 g/dL (13.0-17.0); MCH 28.4 pg (27.0-32.0); MCHC 32.6 g/dL (32.0-37.0); MCV 87.1 fL (80.0-97.0); Mean Platelet Volume 10.9 fL (9.5-12.2); NRBC Per 100 WBC 0 /100 WBCS (0.0-0.0); Platelet Count 339 X 10*3/uL (140-440); RBC 5.57 X 10*6/uL (4.40-5.60); RDW 13.4 % (11.5-14.5); WBC 9.34 X 10*3/uL (4.50-10.00)
[2021-11-04 10:57] LABS: % Iron Saturation 8.81 (15.00-50.00); African American GFR (CKD) 140.7 (60.0-200.0); Albumin 4.6 g/dL (3.8-4.9); Albumin/Globulin Ratio 1.7 (1.60-3.17); Anion Gap 19.8 mmol/L (10.00-18.00); Calcium 9.8 mg/dL (8.7-10.3); Carbon Dioxide 18.2 mmol/L (20.0-27.5); Globulin 2.7 g/dL (1.6-3.3); Magnesium 2.2 mg/dL (1.5-2.4); Non-African American GFR(CKD) 121.4 (60.0-200.0); Potassium 4.1 mmol/L (3.5-5.5); Total Bilirubin 0.4 mg/dL (0.30-1.20); Total Protein 7.3 g/dL (6.2-8.2)
--- NOTE | 2021-11-04 11:39 | P.HPBAR ---
Bariatric H&P - History & Physicial H&P Date: 11/03/21 History & Physicial: Visit/CC: six month follow up Patient initial contact: Initial weight: 244.94 kg Initial weight in pounds: 540.00 Height: 6 ft 3 in Initial BMI: 67.5 Last weight: Current weight: 186.426 kg Current weight in pounds: 411.00 Current BMI: 51.3 [place] body weight (based on NIH guidelines): 88.904 kg Excess body weight loss: 37.5% The patient is a 36 year-old M who presents for Bariatric Assessment. Patient presents today for Lea fall. He's had excellent weight loss. He said some minimal GERD. Past Medical History Past Medical History: Asthma, GERD/Reflux, Osteoarthritis (OA) Additional Past Medical History / Comment(s): No medication use for Asthma. Varicose veins. History of Any Multi-Drug Resistant Organisms: None Reported Past Surgical History: Appendectomy, Bariatric Surgery, Hernia Repair Additional Past Surgical History / Comment(s): Distended bowel at 1 month old, had surgery. EGD. 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 sleeve gastrectomy 05-26-21 Past Anesthesia/Blood Transfusion Reactions: Previous Problems w/ Anesthesia Additional Past Anesthesia/Blood Transfusion Reaction / Comm: "Blood oxygen low coming out after hernia surgery." Smoking Status: Former smoker - Past Family History Father Family Medical History: Dementia, Pulmonary Embolus Surgical - Exam Vital Signs Temp Pulse BP 98 F 90 127/80 11/03/21 15:14 11/03/21 15:14 11/03/21 15:14 - General well developed, well nourished, no distress - Eyes PERRL - ENT normal pinna - Neck no masses - Respiratory normal expansion - Cardiovascular Rhythm: regular - Abdomen Abdomen: soft, non tender Results - Labs 11/03/21 15:03 11/03/21 15:03 Abnormal Lab Results - Last 24 Hours (Table) 11/03/21 11/03/21 Range/Units 15:03 15:03 Carbon Dioxide 18.2 L (20.0-27.5) mmol/L Anion Gap 19.80 H (10.00-18.00) mmol/L BUN 7.0 L (9.0-27.0) mg/dL BUN/Creatinine Ratio 10.00 L (12.00-20.00) Ratio Iron 35 L (65-175) ug/dL % Saturation 8.81 L (15.00-50.00) Ferritin 346.0 H (22.0-322.0) ng/mL Vitamin D 25-Hydroxy 21.2 L (30.0-100.0) ng/mL Folate 2.80 L (4.40-31.00) ng/mL Diabetes panel 11/03/21 Range/Units 15:03 Sodium 139 (135-145) mmol/L Potassium 4.1 (3.5-5.5) mmol/L Chloride 101 (96-109) mmol/L Carbon Dioxide 18.2 L (20.0-27.5) mmol/L BUN 7.0 L (9.0-27.0) mg/dL Creatinine 0.7 (0.6-1.5) mg/dL Glucose 79 (70-110) mg/dL Calcium 9.8 (8.7-10.3) mg/dL AST 17 (14-35) U/L ALT 16 (10-49) U/L Alkaline Phosphatase 95 (41-126) U/L Total Protein 7.3 (6.2-8.2) g/dL Albumin 4.6 (3.8-4.9) g/dL Thyroid panel 11/03/21 Range/Units 15:03 TSH 0.813 (0.350-5.500) uIU/mL Calcium panel 11/03/21 Range/Units 15:03 Calcium 9.8 (8.7-10.3) mg/dL Albumin 4.6 (3.8-4.9) g/dL Pituitary panel 11/03/21 Range/Units 15:03 Sodium 139 (135-145) mmol/L Potassium 4.1 (3.5-5.5) mmol/L Chloride 101 (96-109) mmol/L Carbon Dioxide 18.2 L (20.0-27.5) mmol/L BUN 7.0 L (9.0-27.0) mg/dL Creatinine 0.7 (0.6-1.5) mg/dL Glucose 79 (70-110) mg/dL Calcium 9.8 (8.7-10.3) mg/dL TSH 0.813 (0.350-5.500) uIU/mL Adrenal panel 11/03/21 Range/Units 15:03 Sodium 139 (135-145) mmol/L Potassium 4.1 (3.5-5.5) mmol/L Chloride 101 (96-109) mmol/L Carbon Dioxide 18.2 L (20.0-27.5) mmol/L BUN 7.0 L (9.0-27.0) mg/dL Creatinine 0.7 (0.6-1.5) mg/dL Glucose 79 (70-110) mg/dL Calcium 9.8 (8.7-10.3) mg/dL Total Bilirubin 0.40 (0.30-1.20) mg/dL AST 17 (14-35) U/L ALT 16 (10-49) U/L Alkaline Phosphatase 95 (41-126) U/L Total Protein 7.3 (6.2-8.2) g/dL Albumin 4.6 (3.8-4.9) g/dL Bariatric Assessment & Plan Plan: Status post sleeve gastric. Patient is minimal will be observed. He will have his routine blood work checked today. Bariatric Checklist Checklist: Plan: Checklist: EGD: 1. Hiatal hernia: 2. H. Pylori: HgbA1c: Vitamin D: Smoking: Primary care physician referral: Dr. Duenas Psychiatry clearance: Cardiology clearance: Sleep study: Diet journal: VTE risk score: VTE risk level: Rehab needs at discharge:
[2021-11-04 12:25] LABS: Zinc, Serum 89 ug/dL (60-130)
[2021-11-04 16:47] LABS: Estrogens Total 137 pg/mL
[2021-11-06 07:03] LABS: Vit B1(Thiamine) 56 ug/L (38-122)
== END ==
LOC: BARWHC3 13:35
PROVIDERS: ATTEND Surgery
DX: Z09 Encounter for follow-up examination after completed treatment for conditions other than malignant neoplasm (principal); K21.9 Gastro-esophageal reflux disease without esophagitis; J45.909 Unspecified asthma, uncomplicated; M19.90 Unspecified osteoarthritis, unspecified site; Z98.84 Bariatric surgery status; Z87.891 Personal history of nicotine dependence; Z91.09 Other allergy status, other than to drugs and biological substances
CPT/HCPCS: 80053; 82306; 82607; 82672; 82728; 82746; 83540; 83550; 83735; 84255; 84402; 84403; 84425; 84443; 84590; 84630; 85027; 97803; 99211

== ENCOUNTER → 2021-12-08 | Outpatient (CLI) | payer BC ==
[2021-12-08 14:39] VITALS: BP 132/86; PULSE 86; RESP 16; TEMP 98.3; BMI 48.2
--- NOTE | 2021-12-08 15:29 | P.HPBAR ---
Bariatric H&P - History & Physicial H&P Date: 12/08/21 History & Physicial: Visit/CC: sleeve f/u Patient initial contact: Initial weight: 244.94 kg Initial weight in pounds: 540.00 Height: 6 ft 3 in Initial BMI: 67.5 Last weight: Current weight: 175.087 kg Current weight in pounds: 386.00 Current BMI: 48.2 [place] body weight (based on NIH guidelines): 88.904 kg Excess body weight loss: 44.7% The patient is a 36 year-old M who presents for Bariatric Assessment. Patient rents today for Lea fall. He's had 2 minus weight loss. He's had some mild GERD. Past Medical History Past Medical History: Asthma, GERD/Reflux, Osteoarthritis (OA) Additional Past Medical History / Comment(s): No medication use for Asthma. Varicose veins. History of Any Multi-Drug Resistant Organisms: None Reported Past Surgical History: Appendectomy, Bariatric Surgery, Hernia Repair Additional Past Surgical History / Comment(s): Distended bowel at 1 month old, had surgery. EGD. 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 sleeve gastrectomy 05-26-21 Past Anesthesia/Blood Transfusion Reactions: Previous Problems w/ Anesthesia Additional Past Anesthesia/Blood Transfusion Reaction / Comm: "Blood oxygen low coming out after hernia surgery." Past Psychological History: No Psychological Hx Reported Smoking Status: Former smoker Past Alcohol Use History: None Reported Additional Past Alcohol Use History / Comment(s): Smoked for a few months 3 yrs ago. Past Drug Use History: None Reported - Past Family History Father Family Medical History: Dementia, Pulmonary Embolus Surgical - Exam Vital Signs Temp Pulse Resp BP 98.3 F 86 16 132/86 12/08/21 14:36 12/08/21 14:36 12/08/21 14:36 12/08/21 14:36 - General well developed, well nourished, no distress - Eyes PERRL - ENT normal pinna - Cardiovascular Rhythm: regular - Abdomen Abdomen: soft, non tender Bariatric Assessment & Plan Plan: Status post sleeve gastric. Patient had amazingly loss. His GERD is minimal and will be observed. He'll follow-up in 4 weeks. Bariatric Checklist Checklist: Plan: Checklist: EGD: 1. Hiatal hernia: 2. H. Pylori: HgbA1c: Vitamin D: Smoking: Primary care physician referral: Dr. Duenas Psychiatry clearance: Cardiology clearance: Sleep study: Diet journal: VTE risk score: VTE risk level: Rehab needs at discharge:
== END ==
LOC: BARWHC3 14:10
PROVIDERS: ATTEND Surgery
DX: Z09 Encounter for follow-up examination after completed treatment for conditions other than malignant neoplasm (principal); J45.909 Unspecified asthma, uncomplicated; M19.90 Unspecified osteoarthritis, unspecified site; K21.9 Gastro-esophageal reflux disease without esophagitis; Z98.84 Bariatric surgery status; Z87.891 Personal history of nicotine dependence; Z91.09 Other allergy status, other than to drugs and biological substances
CPT/HCPCS: 99211

== ENCOUNTER → 2022-01-26 | Outpatient (CLI) | payer BC ==
[2022-01-26 14:19] VITALS: BP 131/82; PULSE 77; TEMP 97.7; BMI 45.1
--- NOTE | 2022-01-26 14:54 | P.HPBAR ---
Bariatric H&P - History & Physicial H&P Date: 01/26/22 History & Physicial: Visit/CC: sleeve f/u Patient initial contact: Initial weight: 244.94 kg Initial weight in pounds: 540.00 Height: 6 ft 3 in Initial BMI: 67.5 Last weight: Current weight: 163.747 kg Current weight in pounds: 361.00 Current BMI: 45.1 [place] body weight (based on NIH guidelines): 88.904 kg Excess body weight loss: 52.0% The patient is a 36 year-old M who presents for Bariatric Assessment. Patient presents today for bariatric follow-up. He is doing excellent. His current weight is 361 pounds. His last weight was 386 pounds. He's had some minimal GERD. Past Medical History Past Medical History: Asthma, GERD/Reflux, Osteoarthritis (OA) Additional Past Medical History / Comment(s): No medication use for Asthma. Varicose veins. History of Any Multi-Drug Resistant Organisms: None Reported Past Surgical History: Appendectomy, Bariatric Surgery, Hernia Repair Additional Past Surgical History / Comment(s): Distended bowel at 1 month old, had surgery. EGD. 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 sleeve gastrectomy 05-26-21 Past Anesthesia/Blood Transfusion Reactions: Previous Problems w/ Anesthesia Additional Past Anesthesia/Blood Transfusion Reaction / Comm: "Blood oxygen low coming out after hernia surgery." Past Psychological History: No Psychological Hx Reported Smoking Status: Former smoker Past Alcohol Use History: None Reported Additional Past Alcohol Use History / Comment(s): Smoked for a few months 3 yrs ago. Past Drug Use History: None Reported - Past Family History Father Family Medical History: Dementia, Pulmonary Embolus Surgical - Exam Vital Signs Temp Pulse BP 97.7 F 77 131/82 01/26/22 14:14 01/26/22 14:14 01/26/22 14:14 - General well developed, well nourished, no distress - Eyes PERRL - ENT normal pinna - Neck no masses - Respiratory normal expansion - Cardiovascular Rhythm: regular - Abdomen Abdomen: soft, non tender Bariatric Assessment & Plan Plan: Status post sleeve gastrectomy. Patient is doing quite well. His GERD is minimal will be observed. He'll follow-up in 4 weeks. Bariatric Checklist Checklist: Plan: Checklist: EGD: 1. Hiatal hernia: 2. H. Pylori: HgbA1c: Vitamin D: Smoking: Primary care physician referral: Dr. Duenas Psychiatry clearance: Cardiology clearance: Sleep study: Diet journal: VTE risk score: VTE risk level: Rehab needs at discharge:
[2022-01-26 22:31] LABS: HCT 45.4 % (39.6-50.0); HGB 14.8 g/dL (13.0-17.0); MCHC 32.6 g/dL (32.0-37.0); Mean Platelet Volume 10.4 fL (9.5-12.2); NRBC Per 100 WBC 0 /100 WBCS (0.0-0.0); Platelet Count 313 X 10*3/uL (140-440); RDW 13.3 % (11.5-14.5); WBC 9.62 X 10*3/uL (4.50-10.00)
[2022-01-26 23:21] LABS: % Iron Saturation 19.47 (15.00-50.00); African American GFR (CKD) 146.8 (60.0-200.0); Albumin 4.2 g/dL (3.8-4.9); Albumin/Globulin Ratio 1.75 (1.60-3.17); Anion Gap 10.8 mmol/L (10.00-18.00); BUN/Creat Ratio 17.91 Ratio (12.00-20.00); Blood Urea Nitrogen 11.3 mg/dL (9.0-27.0); Calcium 9.5 mg/dL (8.7-10.3); Carbon Dioxide 24.8 mmol/L (20.0-27.5); Globulin 2.4 g/dL (1.6-3.3); Magnesium 2.1 mg/dL (1.5-2.4); Non-African American GFR(CKD) 126.7 (60.0-200.0); Potassium 4.1 mmol/L (3.5-5.5); Total Bilirubin 0.6 mg/dL (0.30-1.20); Total Protein 6.6 g/dL (6.2-8.2)
[2022-01-27 11:18] LABS: Zinc, Serum 77 ug/dL (60-130)
[2022-01-28 08:53] LABS: Vitamin A 44 ug/dL (38-106)
== END ==
LOC: BARWHC3 13:52
PROVIDERS: ATTEND Surgery
DX: Z09 Encounter for follow-up examination after completed treatment for conditions other than malignant neoplasm (principal); K21.9 Gastro-esophageal reflux disease without esophagitis; D50.8 Other iron deficiency anemias; E44.0 Moderate protein-calorie malnutrition; E55.9 Vitamin D deficiency, unspecified; T56.894A Toxic effect of other metals, undetermined, initial encounter; J45.909 Unspecified asthma, uncomplicated; M19.90 Unspecified osteoarthritis, unspecified site; Z98.84 Bariatric surgery status; Z87.891 Personal history of nicotine dependence; Z91.09 Other allergy status, other than to drugs and biological substances
CPT/HCPCS: 80053; 82306; 82607; 82728; 82746; 83540; 83550; 83735; 84255; 84425; 84443; 84590; 84630; 85027; 97803; 99211

== ENCOUNTER → 2022-03-16 | Outpatient (CLI) | payer BC ==
[2022-03-16 13:27] VITALS: BP 128/80; PULSE 77; TEMP 97.8; BMI 42.3
--- NOTE | 2022-03-16 14:47 | P.HPBAR ---
Bariatric H&P - History & Physicial H&P Date: 03/16/22 History & Physicial: Visit/CC: sleeve f/u Patient initial contact: Initial weight: 244.94 kg Initial weight in pounds: 540.00 Height: 6 ft 3 in Initial BMI: 67.5 Last weight: Current weight: 153.45 kg Current weight in pounds: 338.30 Current BMI: 42.3 [place] body weight (based on NIH guidelines): 88.904 kg Excess body weight loss: 58.6% The patient is a 36 year-old M who presents for Bariatric Assessment. Patient presents for bariatric follow-up. He's lost another 23 pounds last visit. He said some minimal GERD. Past Medical History Past Medical History: Asthma, GERD/Reflux, Osteoarthritis (OA) Additional Past Medical History / Comment(s): No medication use for Asthma. Varicose veins. History of Any Multi-Drug Resistant Organisms: None Reported Past Surgical History: Appendectomy, Bariatric Surgery, Hernia Repair Additional Past Surgical History / Comment(s): Distended bowel at 1 month old, had surgery. EGD. 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 sleeve gastrectomy 05-26-21 Past Anesthesia/Blood Transfusion Reactions: Previous Problems w/ Anesthesia Additional Past Anesthesia/Blood Transfusion Reaction / Comm: "Blood oxygen low coming out after hernia surgery." Past Psychological History: No Psychological Hx Reported Smoking Status: Former smoker Past Alcohol Use History: None Reported Additional Past Alcohol Use History / Comment(s): Smoked for a few months 3 yrs ago. Past Drug Use History: None Reported - Past Family History Father Family Medical History: Dementia, Pulmonary Embolus Surgical - Exam Vital Signs Temp Pulse BP 97.8 F 77 128/80 03/16/22 13:14 03/16/22 13:14 03/16/22 13:14 - General well developed, well nourished, no distress - Eyes PERRL - ENT normal pinna - Neck no masses - Respiratory normal expansion - Cardiovascular Rhythm: regular - Abdomen Abdomen: soft, non tender Bariatric Assessment & Plan Plan: Resolving morbid obesity. Patient's GERD is minimal and will be observed. He'll follow-up in 4 weeks. Bariatric Checklist Checklist: Plan: Checklist: EGD: 1. Hiatal hernia: 2. H. Pylori: HgbA1c: Vitamin D: Smoking: Primary care physician referral: Dr. Duenas Psychiatry clearance: Cardiology clearance: Sleep study: Diet journal: VTE risk score: VTE risk level: Rehab needs at discharge:
== END ==
LOC: BARWHC3 13:03
PROVIDERS: ATTEND Surgery
DX: E66.01 Morbid (severe) obesity due to excess calories (principal); K21.9 Gastro-esophageal reflux disease without esophagitis; J45.909 Unspecified asthma, uncomplicated; M19.90 Unspecified osteoarthritis, unspecified site; Z98.84 Bariatric surgery status; Z87.891 Personal history of nicotine dependence; Z91.09 Other allergy status, other than to drugs and biological substances; Z68.41 Body mass index [BMI] 40.0-44.9, adult
CPT/HCPCS: 99211

== ENCOUNTER → 2022-05-18 | Outpatient (CLI) | payer BC ==
[2022-05-18 14:29] VITALS: BP 130/87; PULSE 76; TEMP 98.5; BMI 39.4
--- NOTE | 2022-05-18 14:59 | P.HPBAR ---
Bariatric H&P - History & Physicial H&P Date: 05/18/22 History & Physicial: Visit/CC: 1 year sleeve f/u Patient initial contact: Initial weight: 244.94 kg Initial weight in pounds: 540.00 Height: 6 ft 3 in Initial BMI: 67.5 Last weight: Current weight: 142.882 kg Current weight in pounds: 315.00 Current BMI: 39.4 [place] body weight (based on NIH guidelines): 88.904 kg Excess body weight loss: 65.4% The patient is a 37 year-old M who presents for Bariatric Assessment. Patient has had excellent weight loss. He's had some minimal cognitive sleeve. He's lost approximately 215 pounds since surgery. Past Medical History Past Medical History: Asthma, GERD/Reflux, Osteoarthritis (OA) Additional Past Medical History / Comment(s): No medication use for Asthma. Varicose veins. History of Any Multi-Drug Resistant Organisms: None Reported Past Surgical History: Appendectomy, Bariatric Surgery, Hernia Repair Additional Past Surgical History / Comment(s): Distended bowel at 1 month old, had surgery. EGD. 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 sleeve gastrectomy 05-26-21 Past Anesthesia/Blood Transfusion Reactions: Previous Problems w/ Anesthesia Additional Past Anesthesia/Blood Transfusion Reaction / Comm: "Blood oxygen low coming out after hernia surgery." Past Psychological History: No Psychological Hx Reported Smoking Status: Former smoker Past Alcohol Use History: None Reported Additional Past Alcohol Use History / Comment(s): Smoked for a few months 3 yrs ago. Past Drug Use History: None Reported - Past Family History Father Family Medical History: Dementia, Pulmonary Embolus Surgical - Exam Vital Signs Temp Pulse BP 98.5 F 76 130/87 05/18/22 13:55 05/18/22 13:55 05/18/22 13:55 - General well developed, well nourished, no distress - Eyes PERRL - ENT normal pinna - Neck no masses - Respiratory normal expansion - Cardiovascular Rhythm: regular - Abdomen Abdomen: non tender Bariatric Assessment & Plan Plan: Resolving morbid obesity. Patient's GERD is minimal will be observed. Bariatric Checklist Checklist: Plan: Checklist: EGD: 1. Hiatal hernia: 2. H. Pylori: HgbA1c: Vitamin D: Smoking: Primary care physician referral: Dr. Duenas Psychiatry clearance: Cardiology clearance: Sleep study: Diet journal: VTE risk score: VTE risk level: Rehab needs at discharge:
[2022-05-18 23:55] LABS: HGB 15.7 g/dL (13.0-17.0); MCV 90.6 fL (80.0-97.0); NRBC Per 100 WBC 0 /100 WBCS (0.0-0.0); Platelet Count 310 X 10*3/uL (140-440); RBC 5.41 X 10*6/uL (4.40-5.60); RDW 12.7 % (11.5-14.5); WBC 8.41 X 10*3/uL (4.50-10.00)
[2022-05-19 00:23] LABS: % Iron Saturation 13.3 (15.00-50.00); Magnesium 2.4 mg/dL (1.5-2.4)
[2022-05-19 00:24] LABS: African American GFR (CKD) 145.4 (60.0-200.0); Albumin 4.6 g/dL (3.8-4.9); Albumin/Globulin Ratio 1.48 (1.60-3.17); Anion Gap 11.5 mmol/L (10.00-18.00); BUN/Creat Ratio 15.48 Ratio (12.00-20.00); Blood Urea Nitrogen 9.8 mg/dL (9.0-27.0); Calcium 9.5 mg/dL (8.7-10.3); Carbon Dioxide 26.8 mmol/L (20.0-27.5); Globulin 3.1 g/dL (1.6-3.3); Non-African American GFR(CKD) 125.5 (60.0-200.0); Potassium 3.6 mmol/L (3.5-5.5); Total Bilirubin 0.6 mg/dL (0.30-1.20); Total Protein 7.7 g/dL (6.2-8.2)
[2022-05-19 11:22] LABS: Zinc, Serum 96 ug/dL (60-130)
[2022-05-20 09:47] LABS: Vit B1(Thiamine) 62 ug/L (38-122)
== END | disposition home or self-care (01) ==
LOC: BARWHC3 13:32
PROVIDERS: ATTEND Surgery
DX: E66.01 Morbid (severe) obesity due to excess calories (principal); D50.8 Other iron deficiency anemias; E44.0 Moderate protein-calorie malnutrition; E55.9 Vitamin D deficiency, unspecified; T56.894A Toxic effect of other metals, undetermined, initial encounter
CPT/HCPCS: 36415; 80053; 82306; 82607; 82728; 82746; 83540; 83550; 83735; 84255; 84425; 84443; 84590; 84630; 85027; 97803; 99211

== ENCOUNTER → 2022-07-20 | Outpatient (CLI) | payer BC ==
--- NOTE | 2022-07-20 14:56 | P.HPBAR ---
Bariatric H&P - History & Physicial H&P Date: 07/20/22 History & Physicial: Visit/CC: Patient initial contact: Initial weight: 244.94 kg Initial weight in pounds: Height: Initial BMI: Last weight: Current weight: Current weight in pounds: Current BMI: [place] body weight (based on NIH guidelines): Excess body weight loss: The patient is a 37 year-old M who presents for Bariatric Assessment. He presents today for bariatric follow-up. He's lost another 5 pounds. He's had s ome mild GERD. Past Medical History Past Medical History: Asthma, GERD/Reflux, Osteoarthritis (OA) Additional Past Medical History / Comment(s): No medication use for Asthma. Varicose veins. History of Any Multi-Drug Resistant Organisms: None Reported Past Surgical History: Appendectomy, Bariatric Surgery, Hernia Repair Additional Past Surgical History / Comment(s): Distended bowel at 1 month old, had surgery. EGD. 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 sleeve gastrectomy 05-26-21 Past Anesthesia/Blood Transfusion Reactions: Previous Problems w/ Anesthesia Additional Past Anesthesia/Blood Transfusion Reaction / Comm: "Blood oxygen low coming out after hernia surgery." Past Psychological History: No Psychological Hx Reported Smoking Status: Former smoker Past Alcohol Use History: None Reported Additional Past Alcohol Use History / Comment(s): Smoked for a few months 3 yrs ago. Past Drug Use History: None Reported - Past Family History Father Family Medical History: Dementia, Pulmonary Embolus Surgical - Exam - General well developed, well nourished, no distress - Eyes PERRL - ENT normal pinna - Neck no masses - Respiratory normal expansion - Cardiovascular Rhythm: regular - Abdomen Abdomen: soft, non tender Bariatric Assessment & Plan Plan: Status post sleeve gastrectomy. Patient's loss in excess of 250 pounds. She will continue to be observed closely. His GERD is minimal and he will follow-up in 4 weeks. Bariatric Checklist Checklist: Plan: Checklist: EGD: 1. Hiatal hernia: 2. H. Pylori: HgbA1c: Vitamin D: Smoking: Primary care physician referral: Dr. Duenas Psychiatry clearance: Cardiology clearance: Sleep study: Diet journal: VTE risk score: VTE risk level: Rehab needs at discharge:
[2022-07-20 14:57] VITALS: BP 132/85; PULSE 73; TEMP 98.2; BMI 38.7
== END ==
LOC: BARWHC3 13:28
PROVIDERS: ATTEND Surgery
DX: Z48.815 Encounter for surgical aftercare following surgery on the digestive system (principal); E66.01 Morbid (severe) obesity due to excess calories; Z68.38 Body mass index [BMI] 38.0-38.9, adult; Z98.84 Bariatric surgery status; Z91.09 Other allergy status, other than to drugs and biological substances
CPT/HCPCS: 99211

== ENCOUNTER → 2022-08-24 | Outpatient (CLI) | payer BC ==
[2022-08-24 13:25] VITALS: BP 132/83; PULSE 98; TEMP 96; BMI 38.8
--- NOTE | 2022-09-14 15:32 | P.HPBAR ---
Bariatric H&P - History & Physicial H&P Date: 08/24/22 History & Physicial: Visit/CC: sleeve F/U Patient initial contact: Initial weight: 244.94 kg Initial weight in pounds: 540.00 Height: 6 ft 3 in Initial BMI: 67.5 Last weight: Current weight: 141.067 kg Current weight in pounds: 311.00 Current BMI: 38.8 [place] body weight (based on NIH guidelines): 88.904 kg Excess body weight loss: 66.5% The patient is a 37 year-old M who presents for Bariatric Assessment. Patient presents today for sleeve gastric fall. He is an excellent weight loss. Said some minimal complaints of GERD. Past Medical History Past Medical History: Asthma, GERD/Reflux, Osteoarthritis (OA) Additional Past Medical History / Comment(s): No medication use for Asthma. Varicose veins. History of Any Multi-Drug Resistant Organisms: None Reported Past Surgical History: Appendectomy, Bariatric Surgery, Hernia Repair Additional Past Surgical History / Comment(s): Distended bowel at 1 month old, had surgery. EGD. 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 sleeve gastrectomy 05-26-21 Past Anesthesia/Blood Transfusion Reactions: Previous Problems w/ Anesthesia Additional Past Anesthesia/Blood Transfusion Reaction / Comm: "Blood oxygen low coming out after hernia surgery." Past Psychological History: No Psychological Hx Reported Smoking Status: Former smoker Past Alcohol Use History: None Reported Additional Past Alcohol Use History / Comment(s): Smoked for a few months 3 yrs ago. Past Drug Use History: None Reported - Past Family History Father Family Medical History: Dementia, Pulmonary Embolus Surgical - Exam Vital Signs Temp Pulse BP 96 F L 98 132/83 08/24/22 13:21 08/24/22 13:21 08/24/22 13:21 - General well developed, well nourished, no distress - Eyes PERRL - ENT normal pinna - Neck no masses - Respiratory normal expansion - Cardiovascular Rhythm: regular - Abdomen Abdomen: soft, non tender Bariatric Assessment & Plan Plan: Patient's doing very well status post sleeve gastrectomy.. His GERD is minimal will be observed. He'll follow-up in 4 weeks. Bariatric Checklist Checklist: Plan: Checklist: EGD: 1. Hiatal hernia: 2. H. Pylori: HgbA1c: Vitamin D: Smoking: Primary care physician referral: Dr. Duenas Psychiatry clearance: Cardiology clearance: Sleep study: Diet journal: VTE risk score: VTE risk level: Rehab needs at discharge:
== END | disposition home or self-care (01) ==
LOC: BARWHC3 13:09
PROVIDERS: ATTEND Surgery
DX: E66.01 Morbid (severe) obesity due to excess calories (principal); K21.9 Gastro-esophageal reflux disease without esophagitis; Z98.84 Bariatric surgery status; Z68.38 Body mass index [BMI] 38.0-38.9, adult; M19.90 Unspecified osteoarthritis, unspecified site; J45.909 Unspecified asthma, uncomplicated; Z88.1 Allergy status to other antibiotic agents
CPT/HCPCS: 99211

== ENCOUNTER → 2022-10-05 | Outpatient (CLI) | payer BC ==
[2022-10-05 14:23] VITALS: BP 128/81; PULSE 76; TEMP 98.2; BMI 37.7
--- NOTE | 2022-11-03 12:24 | P.HPBAR ---
Bariatric H&P - History & Physicial H&P Date: 10/05/22 History & Physicial: Visit/CC: sleeve F/U Patient initial contact: Initial weight: 244.94 kg Initial weight in pounds: 540.00 Height: 6 ft 3 in Initial BMI: 67.5 Last weight: Current weight: 136.985 kg Current weight in pounds: 302.00 Current BMI: 37.7 [place] body weight (based on NIH guidelines): 88.904 kg Excess body weight loss: 69.1% The patient is a 37 year-old M who presents for Bariatric Assessment. Patient resents today for sleeve gastrectomy follow-up. He's had some weight loss since last visit. He's had some minimal GERD. He denies any dysphagia. Past Medical History Past Medical History: Asthma, GERD/Reflux, Osteoarthritis (OA) Additional Past Medical History / Comment(s): No medication use for Asthma. Varicose veins. History of Any Multi-Drug Resistant Organisms: None Reported Past Surgical History: Appendectomy, Bariatric Surgery, Hernia Repair Additional Past Surgical History / Comment(s): Distended bowel at 1 month old, had surgery. EGD. 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 sleeve gastrectomy 05-26-21 Past Anesthesia/Blood Transfusion Reactions: Previous Problems w/ Anesthesia Additional Past Anesthesia/Blood Transfusion Reaction / Comm: "Blood oxygen low coming out after hernia surgery." Past Psychological History: No Psychological Hx Reported Smoking Status: Former smoker Past Alcohol Use History: None Reported Additional Past Alcohol Use History / Comment(s): Smoked for a few months 3 yrs ago. Past Drug Use History: None Reported - Past Family History Father Family Medical History: Dementia, Pulmonary Embolus Surgical - Exam Vital Signs Temp Pulse BP 98.2 F 76 128/81 10/05/22 14:18 10/05/22 14:18 10/05/22 14:18 - General well developed, well nourished, no distress - Eyes PERRL - ENT normal pinna - Neck no masses - Respiratory normal expansion - Abdomen Abdomen: soft, non tender Bariatric Assessment & Plan Plan: Status post sleeve gastrectomy. Patient's GERD is minimal and will be observed. He'll follow-up in 4 weeks. Bariatric Checklist Checklist: Plan: Checklist: EGD: 1. Hiatal hernia: 2. H. Pylori: HgbA1c: Vitamin D: Smoking: Primary care physician referral: Dr. Duenas Psychiatry clearance: Cardiology clearance: Sleep study: Diet journal: VTE risk score: VTE risk level: Rehab needs at discharge:
== END ==
LOC: BARWHC3 13:56
PROVIDERS: ATTEND Surgery
DX: E66.01 Morbid (severe) obesity due to excess calories (principal); J45.909 Unspecified asthma, uncomplicated; K21.9 Gastro-esophageal reflux disease without esophagitis; M19.90 Unspecified osteoarthritis, unspecified site; Z87.891 Personal history of nicotine dependence; Z68.37 Body mass index [BMI] 37.0-37.9, adult; Z91.09 Other allergy status, other than to drugs and biological substances
CPT/HCPCS: 99211

== ENCOUNTER → 2022-11-30 | Outpatient (CLI) | payer BC ==
[2022-11-30 14:20] VITALS: BP 143/92; PULSE 67; TEMP 97.8; BMI 35.6
--- NOTE | 2022-11-30 15:54 | P.HPBAR ---
Bariatric H&P - History & Physicial H&P Date: 11/30/22 History & Physicial: Visit/CC: sleeve F/U Patient initial contact: Initial weight: 244.94 kg Initial weight in pounds: 540.00 Height: 6 ft 3 in Initial BMI: 67.5 Last weight: Current weight: 129.274 kg Current weight in pounds: 285.00 Current BMI: 35.6 [place] body weight (based on NIH guidelines): 88.904 kg Excess body weight loss: 74.1% The patient is a 37 year-old M who presents for Bariatric Assessment. Resents today for sleeve gastric a fall. He's lost 17 pounds since last visit. His BMI is 35. He's had some minimal GERD. Past Medical History Past Medical History: Asthma, GERD/Reflux, Osteoarthritis (OA) Additional Past Medical History / Comment(s): No medication use for Asthma. Varicose veins. History of Any Multi-Drug Resistant Organisms: None Reported Past Surgical History: Appendectomy, Bariatric Surgery, Hernia Repair Additional Past Surgical History / Comment(s): Distended bowel at 1 month old, had surgery. EGD. 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 sleeve gastrectomy 05-26-21 Past Anesthesia/Blood Transfusion Reactions: Previous Problems w/ Anesthesia Additional Past Anesthesia/Blood Transfusion Reaction / Comm: "Blood oxygen low coming out after hernia surgery." Past Psychological History: No Psychological Hx Reported Smoking Status: Former smoker Past Alcohol Use History: None Reported Additional Past Alcohol Use History / Comment(s): Smoked for a few months 3 yrs ago. Past Drug Use History: None Reported - Past Family History Father Family Medical History: Dementia, Pulmonary Embolus Surgical - Exam Vital Signs Temp Pulse BP 97.8 F 67 143/92 11/30/22 14:17 11/30/22 14:17 11/30/22 14:17 - General well developed, well nourished, no distress - Eyes PERRL - ENT normal pinna - Neck no masses - Respiratory normal expansion - Cardiovascular Rhythm: regular - Abdomen Abdomen: soft, non tender Bariatric Assessment & Plan Plan: Resolving morbid obesity. Patient's GERD is minimal and will be observed. He'll follow-up in 8 weeks. Bariatric Checklist Checklist: Plan: Checklist: EGD: 1. Hiatal hernia: 2. H. Pylori: HgbA1c: Vitamin D: Smoking: Primary care physician referral: Dr. Duenas Psychiatry clearance: Cardiology clearance: Sleep study: Diet journal: VTE risk score: VTE risk level: Rehab needs at discharge:
== END ==
LOC: BARWHC3 13:30
PROVIDERS: ATTEND Surgery
DX: E66.01 Morbid (severe) obesity due to excess calories (principal); K21.9 Gastro-esophageal reflux disease without esophagitis; J45.909 Unspecified asthma, uncomplicated; M19.90 Unspecified osteoarthritis, unspecified site; Z68.35 Body mass index [BMI] 35.0-35.9, adult; Z87.891 Personal history of nicotine dependence; Z91.048 Other nonmedicinal substance allergy status
CPT/HCPCS: 99211

== ENCOUNTER → 2023-04-26 | Outpatient (CLI) | payer BC ==
[2023-04-26 13:58] VITALS: BP 133/86; PULSE 51; TEMP 98.4; BMI 35.6
--- NOTE | 2023-05-19 09:30 | P.HPBAR ---
Bariatric H&P - History & Physicial H&P Date: 04/26/23 History & Physicial: Visit/CC: sleeve F/U Patient initial contact: Initial weight: 244.94 kg Initial weight in pounds: 540.00 Height: 6 ft 3 in Initial BMI: 67.5 Last weight: Current weight: 129.274 kg Current weight in pounds: 285.00 Current BMI: 35.6 [place] body weight (based on NIH guidelines): 88.904 kg Excess body weight loss: 74.1% The patient is a 38 year-old M who presents for Bariatric Assessment. She presents today for sleeve gastrectomy follow-up. He's had complaints of GERD. He said weight is remain stable. He has not lost any weight since last visit. Past Medical History Past Medical History: Asthma, GERD/Reflux, Osteoarthritis (OA) Additional Past Medical History / Comment(s): No medication use for Asthma. Varicose veins. History of Any Multi-Drug Resistant Organisms: None Reported Past Surgical History: Appendectomy, Bariatric Surgery, Hernia Repair Additional Past Surgical History / Comment(s): Distended bowel at 1 month old, had surgery. EGD. 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 sleeve gastrectomy 05-26-21 Past Anesthesia/Blood Transfusion Reactions: Previous Problems w/ Anesthesia Additional Past Anesthesia/Blood Transfusion Reaction / Comm: "Blood oxygen low coming out after hernia surgery." Past Psychological History: No Psychological Hx Reported Smoking Status: Former smoker Past Alcohol Use History: None Reported Additional Past Alcohol Use History / Comment(s): Smoked for a few months 3 yrs ago. Past Drug Use History: None Reported - Past Family History Father Family Medical History: Dementia, Pulmonary Embolus Surgical - Exam Vital Signs Temp Pulse BP 98.4 F 51 L 133/86 04/26/23 13:55 04/26/23 13:55 04/26/23 13:55 - General well developed, well nourished, no distress - Eyes PERRL - ENT normal pinna - Neck no masses - Respiratory normal expansion - Cardiovascular Rhythm: regular - Abdomen Abdomen: soft, non tender Bariatric Assessment & Plan Plan: Status post sleeve gastric. Patient's GERD is minimal and will be observed. He will follow-up in 4 weeks. Bariatric Checklist Checklist: Plan: Checklist: EGD: 1. Hiatal hernia: 2. H. Pylori: HgbA1c: Vitamin D: Smoking: Primary care physician referral: Dr. Duenas Psychiatry clearance: Cardiology clearance: Sleep study: Diet journal: VTE risk score: VTE risk level: Rehab needs at discharge:
== END ==
LOC: BARWHC3 13:34
PROVIDERS: ATTEND Surgery
DX: K21.9 Gastro-esophageal reflux disease without esophagitis (principal); J45.909 Unspecified asthma, uncomplicated; M19.90 Unspecified osteoarthritis, unspecified site; Z98.84 Bariatric surgery status; Z87.891 Personal history of nicotine dependence; Z91.048 Other nonmedicinal substance allergy status
CPT/HCPCS: 99211

== ENCOUNTER 2024-05-22 18:29 | Inpatient (IN) | payer BC ==
--- NOTE | 2024-05-22 19:11 | XR ---
EXAMINATION TYPE: XR chest 2V DATE OF EXAM: 05/22/2024 7:05 PM CLINICAL INDICATION:Male, 39 years old with history of Chest Pain; [facility] COMPARISON: Chest radiographs from 11/07/2020 TECHNIQUE: XR chest 2V Frontal and lateral views of the chest. FINDINGS: Lungs/Pleura: There is no evidence of pleural effusion, focal consolidation, or pneumothorax. Pulmonary vascularity: Unremarkable. Heart/mediastinum: Cardiomediastinal silhouette is unremarkable. Musculoskeletal: No acute osseous pathology. IMPRESSION: No acute cardiopulmonary disease/process. [facility], , 05/22/2024 7:09 PM
[2024-05-22 19:32] LABS: Basophils % (A) 0 %; Eosinophils # (A) 0.2 k/uL (0-0.7); Eosinophils % (A) 2 %; HCT 48.2 % (39.0-53.0); HGB 15.7 gm/dL (13.0-17.5); Lymphocytes # (A) 0.8 k/uL (1.0-4.8); Lymphocytes % (A) 10 %; MCH 29.6 pg (25.0-35.0); MCHC 32.5 g/dL (31.0-37.0); MCV 91.1 fL (80.0-100.0); Monocytes # (A) 0.5 k/uL (0-1.0); Monocytes % (A) 6 %; Neutrophils # (A) 7.1 k/uL (1.3-7.7); Neutrophils % (A) 82 %; Platelet Count 237 k/uL (150-450); RBC 5.29 m/uL (4.30-5.90); WBC 8.7 k/uL (3.8-10.6)
[2024-05-22 19:43] LABS: INR 1.1 (<1.2); Partial Thromboplastin Time 26.7 sec (22.0-30.0); Prothrombin Time 11.5 sec (10.0-12.5)
--- NOTE | 2024-05-22 20:02 | ED ---
Chest Pain HPI - General Chief Complaint: Chest Pain Stated Complaint: chest pain Time Seen by Provider: 05/22/24 18:41 Source: patient, RN notes reviewed Mode of arrival: wheelchair Limitations: no limitations - History of Present Illness Initial Comments: This is a 39-year-old male with a history of gastric sleeve procedure presents emergency department chief complaint of epigastric abdominal pain and chest pain and has been present over the last 3 days and worsesing. he states as though it feels he has a lot of gas in his abdomen that is moving up into his chest and he needs to have a bowel movement or pass gas. he endorses nausea when pain intensifies. He denies heart palpitations, dizziness, lightheadedness, shortness of breath or difficulty breathing. States that he has had multiple small bowel movements over the past 3 days. States he is still mildly passing gas. Patient follows with Dr. Richard. previous appendectomy. Denies history of hypertension, high cholesterol, diabetes, or [place]. - Related Data Home Medications Medication Instructions Recorded Confirmed No Known Home Medications 05/23/24 05/23/24 Allergies Allergy/AdvReac Type Severity Reaction Status Date / Time cat dander Allergy Swelling Verified 05/23/24 08:19 Review of Systems ROS Statement: Those systems with pertinent positive or pertinent negative responses have been documented in the HPI. ROS Other: All systems not noted in ROS Statement are negative. Past Medical History Past Medical History: Asthma, GERD/Reflux, Osteoarthritis (OA) Additional Past Medical History / Comment(s): No medication use for Asthma. Varicose veins. History of Any Multi-Drug Resistant Organisms: None Reported Past Surgical History: Appendectomy, Bariatric Surgery, Hernia Repair Additional Past Surgical History / Comment(s): Distended bowel at 1 month old, had surgery. EGD. 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 sleeve gastrectomy 05-26-21 Past Anesthesia/Blood Transfusion Reactions: Previous Problems w/ Anesthesia Additional Past Anesthesia/Blood Transfusion Reaction / Comment(s): "Blood oxygen low coming out after hernia surgery." Past Psychological History: No Psychological Hx Reported Smoking Status: Former smoker Past Alcohol Use History: None Reported Past Drug Use History: None Reported - Past Family History Father Family Medical History: Dementia, Pulmonary Embolus General Exam Limitations: no limitations General appearance: alert, in no apparent distress, obese Eye exam: Present: normal appearance, PERRL, EOMI. Absent: scleral icterus, conjunctival injection, periorbital swelling Neck exam: Present: normal inspection. Absent: tenderness, meningismus, lymphadenopathy Respiratory exam: Present: normal lung sounds bilaterally. Absent: respiratory distress, wheezes, rales, rhonchi, stridor Cardiovascular Exam: Present: regular rate, normal rhythm, normal heart sounds. Absent: systolic murmur, diastolic murmur, rubs, gallop, clicks GI/Abdominal exam: Present: soft, tenderness (diffuse to palaption over all quadrants), hyperactive bowel sounds. Absent: distended, guarding, rebound, rigid Extremities exam: Present: normal inspection, full ROM, normal capillary refill. Absent: tenderness, pedal edema, joint swelling, calf tenderness Back exam: Present: normal inspection Skin exam: Present: warm, dry, intact, normal color. Absent: rash Course Vital Signs 05/22/24 05/22/24 05/22/24 18:30 19:56 20:53 Temperature 99.1 F Pulse Rate 97 84 86 Respiratory 18 18 18 Rate Blood Pressure 125/81 121/68 128/80 O2 Sat by Pulse 98 100 98 Oximetry 05/22/24 05/23/24 05/23/24 22:00 02:00 04:00 Temperature Pulse Rate 92 81 70 Respiratory 18 18 18 Rate Blood Pressure 112/73 112/68 118/75 O2 Sat by Pulse 98 95 97 Oximetry 05/23/24 05/23/24 05/23/24 06:17 09:45 11:47 Temperature 97.6 F Pulse Rate 63 85 78 Respiratory 18 18 18 Rate Blood Pressure 107/63 124/75 120/77 O2 Sat by Pulse 96 97 98 Oximetry Chest Pain MDM - MDM Was pt. sent in by a medical professional or institution (, PA, FOOD ORDER EXPEDITER, urgent care, hospital, or [facility]...) When possible be specific @ -No Did you speak to anyone other than the patient for history (EMS, parent, family, police, friend...)? What history was obtained from this source @ -No Did you review nursing and triage notes (agree or disagree)? Why? @ -I reviewed and agree with nursing and triage notes Were old charts reviewed (outside hosp., previous admission, EMS record, old EKG, old radiological studies, urgent care reports/EKG's, [facility] records)? Report findings @ -No old charts were reviewed Differential Diagnosis (chest pain, altered mental status, abdominal pain women, abdominal pain men, vaginal bleeding, weakness, fever, dyspnea, syncope, headache, dizziness, GI bleed, back pain, seizure, CVA, palpatations, mental health, musculoskeletal)? @ -Differential Abdominal Pain Men: Appendicitis, cholecystitis, diverticulosis, ischemic bowel, pancreatitis, hepatitis, UTI, gastroenteritis, AAA, incarcerated hernia, bowel obstruction, constipation, inflammatory bowel, hepatitis, peptic ulcer disease, splenic infarction, perforated viscus, testicular torsion, this is not meant to be an all-inclusive list EKG interpreted by me (3pts min.). @ -completed at 1838 sinus rhythm with a ventricular rate of 94, AK interval 157, QRS 108, QTc 382. No acute signs of ischemia X-rays interpreted by me (1pt min.). @ -chest x-ray no acute cardiopulmonary process or disease CT interpreted by me (1pt min.). @ -CT abdomen pelvis with contrast reveals no acute process with postsurgical changes of the stomach U/S interpreted by me (1pt. min.). @ -US of the gallbladder reveals cholelithiasis without evidence for acute cholecystitis with a prominent common bile duct measuring 9 mm with no evidence to suggest choledocholithiasis, consider further evaluation with MRCP What testing was considered but not performed or refused? (CT, X-rays, U/S, labs)? Why? @ -None What meds were considered but not given or refused? Why? @ -None Did you discuss the management of the patient with other professionals (professionals i.e. , PA, FOOD ORDER EXPEDITER, lab, RT, psych nurse, social work nurse, engineering research manager, teacher, forward air controller/air officer, case supervisor)? Give summary @ -i spoke with bat person GI specialist, Dr. Gutierrez, in regard to the patient's presentation and concern for a prominent common bile duct measuring 9 mm and elevated AST and ALT. Patient will be admitted to internal medicine with GI consult for her scheduled MRCP tomorrow. Spoke with [facility], internal medicine, who has agreed for admission. Was smoking cessation discussed for >3mins.? @ -No Was critical care preformed (if so, how long)? @ -No Were there social determinants of health that impacted care today? How? (Homelessness, low income, unemployed, alcoholism, drug addiction, transportation, low edu. Level, literacy, decrease access to med. care, detention, rehab)? @ -No Was there de-escalation of care discussed even if they declined (Discuss DNR or withdrawal of care, Hospice)? DNR status @ -No What co-morbidities impacted this encounter? (DM, HTN, Smoking, COPD, CAD, Cancer, CVA, ARF, Chemo, Hep., AIDS, mental health diagnosis, sleep apnea, morbid obesity)? @ -None Was patient admitted / discharged? Hospital course, mention meds given and route, prescriptions, significant lab abnormalities, going to OR and other pertinent info. @ - admitted. 39-year-old female with epigastric abdominal pain and chest pain. My evaluation patient is resting comfortably no signs acute distress. Vitals are stable. EKG reveals sinus rhythm. Patient's pain in her upper chest is not reproducible palpation. Is noted to have diffuse abdominal pain over all quadrants with no signs of rebound tenderness or rigidity. Patient is symptomatically treated with analgesics pending laboratory results and CT imaging due to abdominal pain and history of gastric sleeve procedure. He is agree with this plan. Laboratory results remarkable for transaminitis with an AST 296, ALT 349, elevated bilirubin 2.4, alk phos 102. Troponin not elevated less than 0.012. Reevaluation patients laboratory results will be sent for ultrasound of the gallbladder to rule out potential down within the common bile duct or biliary system. Patient states that the pain medication has alleviated some of her symptoms. CT of the abdomen pelvis unremarkable, ultrasound gallbladder fracture for a prominence of the common bile duct measuring 9 mm. Patient will be admitted to internal medicine with GI consult for further evaluation. Discussed with Dr. Gudino Undiagnosed new problem with uncertain prognosis? @ -No Drug Therapy requiring intensive monitoring for toxicity (Heparin, Nitro, Insulin, Cardizem)? @ -No Were any procedures done? @ -No Diagnosis/symptom? @ -Common bile duct dilation, abdominal pain Acute, or Chronic, or Acute on Chronic? @ -Acute Uncomplicated (without systemic symptoms) or Complicated (systemic symptoms)? @ -Complicated Side effects of treatment? @ -No Exacerbation, Progression, or Severe Exacerbation? @ -No Poses a threat to life or bodily function? How? (Chest pain, [place], NE, pneumonia, PE, COPD, DKA, ARF, appy, cholecystitis, CVA, Diverticulitis, Homicidal, Suicidal, threat to staff... and all critical care pts) @ -No Disposition Clinical Impression: Common bile duct dilatation, Abdominal pain Disposition: ADMITTED IP TO THIS HOSP Condition: Stable Decision to Admit Reason: Admit from EC Decision Date: 05/22/24 Decision Time: 22:10
[2024-05-22 20:49] LABS: ALT 349 U/L (4-49); AST 296 U/L (17-59); African American GFR (CKD) >90 (>60 ml/min/1.73 sqM); Albumin 4.4 g/dL (3.5-5.0); Alkaline Phosphatase 102 U/L (38-126); Anion Gap 6 mmol/L; Blood Urea Nitrogen 10 mg/dL (9-20); Calcium 9.3 mg/dL (8.4-10.2); Carbon Dioxide 31 mmol/L (22-30); Chloride 101 mmol/L (98-107); Glucose 93 mg/dL (74-99); Magnesium 1.9 mg/dL (1.6-2.3); Non-African American GFR(CKD) >90 (>60 ml/min/1.73 sqM); Potassium 4.1 mmol/L (3.5-5.1); Sodium 138 mmol/L (137-145); Total Bilirubin 2.4 mg/dL (0.2-1.3); Total Protein 7.1 g/dL (6.3-8.2)
[2024-05-22] MEDS: MORPHINE SULFATE 4 MG/ML SYRINGE IVP STA (20:54)
--- NOTE | 2024-05-22 21:06 | CT ---
EXAMINATION TYPE: CT abdomen pelvis w con CT DLP: 2200.3 mGycm, Automated exposure control for dose reduction was used. DATE OF EXAM: 05/22/2024 8:57 PM COMPARISON: None. CLINICAL INDICATION:Male, 39 years old with history of ab pain, hx gastric sleeve; abdominal pain mor e towards upper abdomen. hx of gastric sleeve. TECHNIQUE: Axial CT of the abdomen and pelvis. Sagittal and coronal reformats were created on a [employer] workstation. Contrast used:100ml mL of Isovue 370 with IV Contrast, (none if empty) Oral contrast used: without Oral Contrast (none if empty) FINDINGS: LOWER CHEST: Unremarkable ABDOMEN LIVER: Unremarkable GALLBLADDER AND BILE DUCTS: Unremarkable. PANCREAS: Unremarkable. SPLEEN: Unremarkable. ADRENAL GLANDS: Unremarkable. KIDNEYS AND URETERS: No evidence of hydronephrosis or renal calculus. The ureters are unremarkable. PELVIS BLADDER: Unremarkable REPRODUCTIVE: Unremarkable. ABDOMEN & PELVIS STOMACH AND BOWEL: Postsurgical changes of the stomach. No evidence of bowel obstruction. PERITONEUM/RETROPERITONEUM: No evidence of pneumoperitoneum or free fluid. VASCULATURE: No evidence of aortic aneurysm. MUSCULOSKELETAL: No acute osseous abnormalities LYMPH NODES: No gross evidence for lymphadenopathy. SOFT TISSUE/ABDOMINAL WALL: Unremarkable IMPRESSION: 1. No acute process. 2. Postsurgical changes of the stomach. [facility], , 05/22/2024 9:04 PM
--- NOTE | 2024-05-22 21:41 | US ---
EXAMINATION TYPE: US gallbladder DATE OF EXAM: 05/22/2024 COMPARISON: CT today CLINICAL INDICATION: Male, 39 years old with history of transaminitis, ab pain; Patient states abdomi nal pain. Hx gastric bypass surgery. TECHNIQUE: Grayscale and color Doppler imaging of the right upper quadrant was performed. 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 Cholelithiasis without evidence to suggest acute cholecystitis. 2. Prominent common bile duct measuring 9 mm. No evidence to suggest choledocholithiasis on this exam . Consider further evaluation with dedicated MRCP. [facility], , 05/22/2024 9:39 PM
[2024-05-22] MEDS ORDERED: KETOROLAC 15 MG/ML 1 ML VIAL IVP PRN (22:21)
[2024-05-22] MEDS ORDERED: IBUPROFEN 400 MG TAB PO PRN (22:21)
[2024-05-22] MEDS ORDERED: NALOXONE 0.4 MG/ML 1 ML VIAL IV PRN (22:21)
[2024-05-23 03:13] LABS: Amylase 87 U/L (30-110); Lipase 583 U/L (23-300)
[2024-05-23 03:35] LABS: Basophils % (A) 0 %; Eosinophils # (A) 0.2 k/uL (0-0.7); Eosinophils % (A) 3 %; HCT 44.9 % (39.0-53.0); HGB 14.8 gm/dL (13.0-17.5); Lymphocytes # (A) 0.7 k/uL (1.0-4.8); Lymphocytes % (A) 11 %; MCH 29.9 pg (25.0-35.0); MCV 90.4 fL (80.0-100.0); Mean Platelet Volume 7.3; Monocytes # (A) 0.5 k/uL (0-1.0); Monocytes % (A) 8 %; Neutrophils # (A) 5.1 k/uL (1.3-7.7); Neutrophils % (A) 77 %; Platelet Count 199 k/uL (150-450); RBC 4.97 m/uL (4.30-5.90); RDW 12.1 % (11.5-15.5); WBC 6.7 k/uL (3.8-10.6)
[2024-05-23 03:45] LABS: ALT 294 U/L (4-49); AST 172 U/L (17-59); African American GFR (CKD) >90 (>60 ml/min/1.73 sqM); Albumin 3.8 g/dL (3.5-5.0); Alkaline Phosphatase 92 U/L (38-126); Anion Gap 6 mmol/L; Blood Urea Nitrogen 9 mg/dL (9-20); Carbon Dioxide 26 mmol/L (22-30); Chloride 103 mmol/L (98-107); Glucose 100 mg/dL (74-99); Non-African American GFR(CKD) >90 (>60 ml/min/1.73 sqM); Potassium 3.8 mmol/L (3.5-5.1); Sodium 135 mmol/L (137-145); Total Bilirubin 2.4 mg/dL (0.2-1.3); Total Protein 6.4 g/dL (6.3-8.2)
[2024-05-23] MEDS: MORPHINE SULFATE 4 MG/ML SYRINGE IV PRN (09:43)
[2024-05-23] MEDS: SODIUM CHLORIDE 0.9% 1,000 ML IV STA (10:04)
--- NOTE | 2024-05-23 11:41 | P.CONS ---
History of Present Illness - Reason for Consult Consult date: 05/23/24 Dilated common bile duct Requesting physician: Angela Ruiz - Chief Complaint Abdominal pain - History of Present Illness This is a pleasant 39-year-old male who presented to the emergency department with complaints of abdominal pain that had started Wednesday evening. Said it was mostly in his chest and cramping in the mid abdominal area radiating to his back. He thought it was gas pain he did intentionally make himself vomit. Pain continued so he came in for further evaluation. Past medical history includes bariatric surgery with sleeve gastrectomy in 2020 hernia repair and obesity. As part of his workup he had blood work done that did show elevation in his LFTs and elevated lipase. He had a CT of the abdomen pelvis that reported normal CT scan however gallbladder ultrasound did report prominent CBD at 1.0 cm with Leeanna lithiasis. He states abdominal pain a little bit better today. No nausea or vomiting. He has been afebrile. LFTs continue to remain elevated with total bilirubin at 2.4 AST 172 ALT 294 alkaline phosphatase 92 amylase 87 lipase 583. Patient has no leukocytosis, INR 1.1 Review of Systems REVIEW OF SYSTEMS: CARDIOPULMONARY: No chest pain or shortness of breath. Gastrointestinal: Abdominal pain. No nausea or vomiting. No hematemesis, coffee-ground emesis. No rectal bleeding, or melena. GENITOURINARY: No dysuria or hematuria. MUSCULOSKELETAL: Reports normal range of motion. SKIN: No rashes. No jaundice. ENDOCRINE: No chills, fevers. No excessive weight gain or loss. No polydipsia or polyuria. PSYCHIATRIC: Unremarkable. NEUROLOGY: No change in mental status. Denies dizziness, headache. ENT: Vision unremarkable. CONSTITUTIONAL: No recent weight loss. No fever, chills, night sweats. Past Medical History Past Medical History: Asthma, GERD/Reflux, Osteoarthritis (OA) Additional Past Medical History / Comment(s): No medication use for Asthma. Varicose veins. History of Any Multi-Drug Resistant Organisms: None Reported Past Surgical History: Appendectomy, Bariatric Surgery, Hernia Repair Additional Past Surgical History / Comment(s): Distended bowel at 1 month old, had surgery. EGD. 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 sleeve gastrectomy 05-26-21 Past Anesthesia/Blood Transfusion Reactions: Previous Problems w/ Anesthesia Additional Past Anesthesia/Blood Transfusion Reaction / Comm: "Blood oxygen low coming out after hernia surgery." Past Psychological History: No Psychological Hx Reported Smoking Status: Former smoker Past Alcohol Use History: None Reported Past Drug Use History: None Reported - Past Family History Father Family Medical History: Dementia, Pulmonary Embolus Medications and Allergies Home Medications Medication Instructions Recorded Confirmed Type No Known Home Medications 05/23/24 05/23/24 History Allergies Allergy/AdvReac Type Severity Reaction Status Date / Time cat dander Allergy Swelling Verified 05/23/24 08:19 Physical Exam Vitals: Vital Signs Temp Pulse Resp BP Pulse Ox 05/23/24 06:17 63 18 107/63 96 05/23/24 04:00 70 18 118/75 97 05/23/24 02:00 81 18 112/68 95 05/22/24 22:00 92 18 112/73 98 05/22/24 20:53 86 18 128/80 98 05/22/24 19:56 84 18 121/68 100 05/22/24 18:30 99.1 F 97 18 125/81 98 Intake and Output 05/22/24 05/23/24 05/23/24 22:59 06:59 14:59 Other: Weight 144.696 kg General appearance: The patient is alert, oriented, appears in no acute distress. Obese. HET: Head is normocephalic and atraumatic. Conjunctiva pink. Sclera anicteric. Neck: Supple without lymphadenopathy. Trachea midline. Heart: Regular. Lungs: Equal expansion, normal respiratory effort. Abdomen: Soft, mild epigastric tenderness, nondistended. Skin: No rashes. No jaundice. Extremities: Normal skin color and turgor. No pedal edema. Neurological: No focal deficits. Alert and oriented x3. Results CBC & Chem 7: 05/23/24 03:01 05/23/24 03:01 Labs: Abnormal Lab Results - Last 24 Hours (Table) 05/22/24 05/22/24 05/22/24 Range/Units 19:19 19:19 22:16 Lymphocytes # 0.8 L (1.0-4.8) k/uL Sodium (137-145) mmol/L Carbon Dioxide 31 H (22-30) mmol/L Glucose (74-99) mg/dL Total Bilirubin 2.4 H (0.2-1.3) mg/dL AST 296 H (17-59) U/L ALT 349 H (4-49) U/L Lipase 583 H (23-300) U/L 05/23/24 05/23/24 Range/Units 03:01 03:01 Lymphocytes # 0.7 L (1.0-4.8) k/uL Sodium 135 L (137-145) mmol/L Carbon Dioxide (22-30) mmol/L Glucose 100 H (74-99) mg/dL Total Bilirubin 2.4 H (0.2-1.3) mg/dL AST 172 H (17-59) U/L ALT 294 H (4-49) U/L Lipase (23-300) U/L Comments: CT abdomen pelvis with contrast reports no acute process. Postsurgical changes of the stomach Gallbladder ultrasound reports cholelithiasis without evidence to suggest acute cholecystitis. Prominent common bile duct measuring 9 mm. No evidence to suggest choledocholithiasis on this exam. Consider further evaluation with dedicated MRCP. Chest x-ray reports no acute cardiopulmonary disease/process Assessment and Plan (1) Gallstone pancreatitis Narrative/Plan: 39-year-old male presenting with abdominal pain with elevated lipase and LFTs with cholelithiasis and prominent CBD found on ultrasound consistent with a gallstone pancreatitis. Labs are with a cholestatic pattern suggesting choledocholithiasis. Would recommend proceeding with ERCP and consultation to general surgery. Procedure discussed with patient in detail including risks and benefits. Patient is agreeable to proceed. Current Visit: Yes Status: Acute Code(s): K85.10 - BILIARY ACUTE PANCREATITIS WITHOUT NECROSIS OR INFECTION SNOMED Code(s): 61741465 (2) Cholelithiasis Current Visit: Yes Status: Acute Code(s): K80.20 - CALCULUS OF GALLBLADDER W/O CHOLECYSTITIS W/O OBSTRUCTION SNOMED Code(s): 583150036 (3) Abdominal pain Current Visit: Yes Status: Acute Code(s): R10.9 - UNSPECIFIED ABDOMINAL PAIN SNOMED Code(s): 48510029 (4) Morbid obesity Current Visit: No Status: Acute Code(s): E66.01 - MORBID (SEVERE) OBESITY DUE TO EXCESS CALORIES SNOMED Code(s): 749608594 (5) History of sleeve gastrectomy Current Visit: Yes Status: Acute Code(s): Z90.3 - SNOMED Code(s): 581739921899417 (6) Transaminitis Current Visit: Yes Status: Acute Code(s): R74.01 - ELEVATION OF LEVELS OF LIVER TRANSAMINASE LEVELS SNOMED Code(s): 503675098 Plan: 1. Continue symptomatic and supportive care 2. Keep n.p.o. 3. Aggressive IV hydration 4. Antiemetics as needed 5. Pain medication as needed 6. Protonix 40 mg daily for GI prophylaxis 7. Indomethacin 100 mg per rectum and Levaquin 500 mg IV piggyback 1 hour prior to procedure 8. Plan for ERCP this afternoon. Procedure discussed with patient including risks and benefits. Patient seemingly understand and is agreeable to proceed. 9. Consult to general surgery, patient has been established with Dr. Richard in the past. 10. Repeat labs in AM Thank you for this consultation, we will continue to follow. Dr. Tres Gutierrez I agree with the dictator's note, documented as a scribe by Nelida Ring.
[2024-05-23] MEDS: INDOMETHACIN 100 MG SUPPOSITORY RECTAL ONE (12:57)
[2024-05-23] MEDS: LEVOFLOXACIN 500MG-D5W PMX 500 MG in DEXTROSE/WATER 1 100ML.BAG IVPB SCH (12:57)
--- NOTE | 2024-05-23 13:08 | P.GSCN ---
History of Present Illness Consult date: 05/23/24 History of present illness: CHIEF COMPLAINT: Abdominal pain HISTORY OF PRESENT ILLNESS: This is a 39-year-old male who presented the hospital with complaints of pain across the upper abdomen that started around 6 PM on Wednesday. That evening he did eat Dutch for dinner. Patient does report that the pain radiates up into the chest. He did try to relieve symptoms with self-induced vomiting. He reports chills. His gallbladder ultrasound did reveal evidence of gallstones. And a prominent common bile duct. He did have elevated LFTs and total bilirubin. Mildly elevated lipase. Patient seen by GI service and ERCP was ordered for possible choledocholithiasis. Past surgical history does include sleeve, and inguinal hernia repair, appendectomy and possible bowel resection in infancy. PAST MEDICAL HISTORY: Asthma, GERD/Reflux, Osteoarthritis (OA), PAST SURGICAL HISTORY: Appendectomy, Bariatric Surgery, Hernia Repair,Distended bowel at 1 month old, had surgery. EGD. 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 sleeve gastrectomy 05-26-21 MEDICATIONS: See below ALLERGIES: See below SOCIAL HISTORY: No illicit drug use. REVIEW OF SYSTEMS: CONSTITUTIONAL: Denies fever or chills. HEENT: Denies blurred vision, vision changes, or eye pain. Denies hemoptysis CARDIOVASCULAR: Denies chest pain or pressure. RESPIRATORY: No shortness of breath. GASTROINTESTINAL: See HPI for pertinent findings HEMATOLOGIC: Denies bleeding disorders. GENITOURINARY: Denies any blood in urine or increased urinary frequency. SKIN: Denies pruitis. Denies rash. PHYSICAL EXAM: VITAL SIGNS: Reviewed GENERAL: Well-developed in no acute distress. HEENT: Scleral icterus present ABDOMEN: Soft. Obese. Nondistended. There is a palpation across the upper abdomen especially epigastric and right upper quadrant NEUROLOGIC: Alert and oriented. Cranial nerves II through XII grossly intact. LABORATORY DATA: WBC 6.7 Hgb 14.8 platelets 199 Sodium 135 potassium 3.8 creatinine 0.68 Total bilirubin 2.4 AST 172 ALT 294 slightly decreased alk phos 92 Lipase 583 IMAGING: CT scan abdomen pelvis reports no acute process. Postsurgical change of st omach. Gallbladder ultrasound reports cholelithiasis without evidence of acute cholecystitis. Prominent common bile duct measuring 9 mm. No evidence to suggest choledocholithiasis. ASSESSMENT: 1. Gallstone pancreatitis 2. Concerns for possible choledocholithiasis with elevated LFTs and total bilirubin PLAN: -Patient scheduled for laparoscopic cholecystectomy tomorrow with Dr. Richard -N.p.o. after midnight -Patient scheduled for ERCP today with GI service -Continue IV fluids -Continue supportive care -Repeat LFTs and lipase in a.m. 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 Signing provider agrees with the documented findings, assessment, and plan of care. Past Medical History Past Medical History: Asthma, GERD/Reflux, Osteoarthritis (OA) Additional Past Medical History / Comment(s): No medication use for Asthma. Varicose veins. History of Any Multi-Drug Resistant Organisms: None Reported Past Surgical History: Appendectomy, Bariatric Surgery, Hernia Repair Additional Past Surgical History / Comment(s): Distended bowel at 1 month old, had surgery. EGD. 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 sleeve gastrectomy 05-26-21 Past Anesthesia/Blood Transfusion Reactions: Previous Problems w/ Anesthesia Additional Past Anesthesia/Blood Transfusion Reaction / Comm: "Blood oxygen low coming out after hernia surgery." Past Psychological History: No Psychological Hx Reported Smoking Status: Never smoker Past Alcohol Use History: None Reported Additional Past Alcohol Use History / Comment(s): Smoked for a few months 3 yrs ago. Past Drug Use History: None Reported - Past Family History Father Family Medical History: Dementia, Pulmonary Embolus Medications and Allergies Home Medications Medication Instructions Recorded Confirmed Type No Known Home Medications 05/23/24 05/23/24 History Allergies Allergy/AdvReac Type Severity Reaction Status Date / Time cat dander Allergy Swelling Verified 05/23/24 08:19 Surgical - Exam Vital Signs Temp Pulse Resp BP Pulse Ox 99.1 F 97 18 125/81 98 05/22/24 18:30 05/22/24 18:30 05/22/24 18:30 05/22/24 18:30 05/22/24 18:30 Results - Labs 05/23/24 03:01 05/23/24 03:01 Abnormal Lab Results - Last 24 Hours (Table) 05/22/24 05/22/24 05/22/24 Range/Units 19:19 19:19 22:16 Lymphocytes # 0.8 L (1.0-4.8) k/uL Sodium (137-145) mmol/L Carbon Dioxide 31 H (22-30) mmol/L Glucose (74-99) mg/dL Total Bilirubin 2.4 H (0.2-1.3) mg/dL AST 296 H (17-59) U/L ALT 349 H (4-49) U/L Lipase 583 H (23-300) U/L 05/23/24 05/23/24 Range/Units 03:01 03:01 Lymphocytes # 0.7 L (1.0-4.8) k/uL Sodium 135 L (137-145) mmol/L Carbon Dioxide (22-30) mmol/L Glucose 100 H (74-99) mg/dL Total Bilirubin 2.4 H (0.2-1.3) mg/dL AST 172 H (17-59) U/L ALT 294 H (4-49) U/L Lipase (23-300) U/L Diabetes panel 05/22/24 05/23/24 Range/Units 19:19 03:01 Sodium 138 135 L (137-145) mmol/L Potassium 4.1 3.8 (3.5-5.1) mmol/L Chloride 101 103 (98-107) mmol/L Carbon Dioxide 31 H 26 (22-30) mmol/L BUN 10 9 (9-20) mg/dL Creatinine 0.75 0.68 (0.66-1.25) mg/dL Glucose 93 100 H (74-99) mg/dL Calcium 9.3 9.0 (8.4-10.2) mg/dL AST 296 H 172 H (17-59) U/L ALT 349 H 294 H (4-49) U/L Alkaline Phosphatase 102 92 (38-126) U/L Total Protein 7.1 6.4 (6.3-8.2) g/dL Albumin 4.4 3.8 (3.5-5.0) g/dL Calcium panel 05/22/24 05/23/24 Range/Units 19:19 03:01 Calcium 9.3 9.0 (8.4-10.2) mg/dL Albumin 4.4 3.8 (3.5-5.0) g/dL Pituitary panel 05/22/24 05/23/24 Range/Units 19:19 03:01 Sodium 138 135 L (137-145) mmol/L Potassium 4.1 3.8 (3.5-5.1) mmol/L Chloride 101 103 (98-107) mmol/L Carbon Dioxide 31 H 26 (22-30) mmol/L BUN 10 9 (9-20) mg/dL Creatinine 0.75 0.68 (0.66-1.25) mg/dL Glucose 93 100 H (74-99) mg/dL Calcium 9.3 9.0 (8.4-10.2) mg/dL Adrenal panel 05/22/24 05/23/24 Range/Units 19:19 03:01 Sodium 138 135 L (137-145) mmol/L Potassium 4.1 3.8 (3.5-5.1) mmol/L Chloride 101 103 (98-107) mmol/L Carbon Dioxide 31 H 26 (22-30) mmol/L BUN 10 9 (9-20) mg/dL Creatinine 0.75 0.68 (0.66-1.25) mg/dL Glucose 93 100 H (74-99) mg/dL Calcium 9.3 9.0 (8.4-10.2) mg/dL Total Bilirubin 2.4 H 2.4 H (0.2-1.3) mg/dL AST 296 H 172 H (17-59) U/L ALT 349 H 294 H (4-49) U/L Alkaline Phosphatase 102 92 (38-126) U/L Total Protein 7.1 6.4 (6.3-8.2) g/dL Albumin 4.4 3.8 (3.5-5.0) g/dL
[2024-05-23] MEDS ORDERED: KETAMINE HCL IN 0.9 % NACL 50 MG/5 ML SYRINGE ONE (13:32)
[2024-05-23] MEDS ORDERED: GLYCOPYRROLATE 0.2 MG/ML 2 ML VIAL ONE (13:32)
[2024-05-23] MEDS ORDERED: PROPOFOL 10 MG/ML 20 ML VIAL IV ONE (13:32)
[2024-05-23] MEDS: IV FLUID CONTINUATION 1,000 ML IV ONE (13:42)
[2024-05-23] MEDS: IOPAMIDOL-300 30ML BTL MISCELLANE ONE ×3 (13:43→13:57)
--- NOTE | 2024-05-23 14:21 | P.PCN ---
Date of Procedure: 05/23/24 Procedure(s) Performed: Brief history: Patient is a 39 year-old pleasant white male admitted to hospital with acute onset of severe epigastric pain for the last 2 days duration. He was noted to have elevated LFTs and bilirubin of 2.4. He had an ultrasound of the gallbladder done that showed evidence of gallstones and dilated CBD measuring 9 mm. Scheduled for an ERCP for clinical suspicion for CBD stones. Procedure performed: ERCP with biliary septotomy and balloon sweep Preoperative diagnoses: Epigastric and right upper abdominal pain, elevated LFTs and mild jaundice/gallstones IV sedation per anesthesia: Procedure: After informed consent was obtained from the patient and after the risks bene fits and complications including bleeding perforation and pancreatitis explained in detail the patient was brought into the endoscopy unit. The patient was placed in prone position and IV conscious sedation was administered by anesthesia under continuous monitoring. The Olympus side-viewing duodenoscope was then inserted into the mouth and esophagus intubated without any difficulty. The scope was gradually advanced into the stomach and duodenum. The major papilla was identified without any difficulty. There was a large preoperative diverticulum identified with the ampullary orifice at the base of the diverticulum. Initial cannulation resulted in opacification of the common bile duct and upon injection of the dye the common bile duct appeared slightly dilated measuring about 7 to 8 mm in diameter and there was a faint filling defect noted in the distal common bile duct. At this time the catheter was exchanged over a guidewire with a biliary sphincterotomy which was advanced into the common bile duct and biliary septotomy was performed at 11 o'clock position and was extended to 1 cm. Following this 11.5 mm balloon was passed over the guidewire into the proximal CBD, gently inflated and withdrawn and I did not see any stone exiting the ampulla. This maneuver was repeated 2 more times. Following this an occlusion cholangiogram was performed and I did not see any other filling defects. At the conclusion of the procedure there was some oozing noted at the biliary sphincterotomy site. The bleeding spontaneously resolved. No intervention was done. The pancreatic duct was not cannulated intentionally. Patient tolerated the procedure well. Impression: Dilated CBD measuring about 7 mm in diameter with a faint filling defect in the distal common bile duct s/p biliary sphincterotomy and balloon sweep and no stone seen exiting the ampulla Pancreatic duct intentionally not cannulated Mild oozing at this enterotomy site with spontaneously resolved Recommendations: The findings of this examination were discussed with the patient as well as a family. At this time we will keep him on clear liquids. Monitor labs closely. Monitor CBC every 12 hours
--- NOTE | 2024-05-23 14:34 | FL ---
Fluoroscopy INDICATION: Pain FINDINGS: Fluoroscopy time: 26.9 seconds. Total dose area product (DAP) in uGy*m?, mGy*cm? (or similar): 3.4674 Images obtained: 2. FINDINGS: ERCP is performed. Common bile duct and proximal left and right hepatic ducts appear normal . No filling defects are identified. Cystic duct appears patent. IMPRESSION: 1. Documentation of fluoroscopy. [facility], Workstation: [email or web address], 05/23/2024 2:32 PM
[2024-05-23] MEDS: HEPARIN SODIUM,PORCINE 5,000 UNIT/ML 1 ML VIAL SQ SCH (16:03)
[2024-05-23] MEDS: PANTOPRAZOLE 40 MG/10 ML VIAL IVP SCH (16:06)
[2024-05-23] MEDS: SODIUM CHLORIDE 0.9% 1,000 ML IV SCH (17:28)
--- NOTE | 2024-05-23 22:47 | HP ---
HISTORY AND PHYSICAL CHIEF COMPLAINT: Epigastric pain. HISTORY OF PRESENT ILLNESS: This is a 39-year-old gentleman admitted with epigastric pain, was found to have cholelithiasis and as well as a prominent CBD duct, possibly secondary to CBD stones. The patient underwent ERCP with biliary septostomy and balloon sweep. No chest pain. No palpitations. The patient is scheduled for cholecystectomy tomorrow. There is no history of any fever, rigors, or chills. PAST MEDICAL HISTORY: Reviewed include asthma, GERD, DJD. Rest of the history and rest of the chart is also reviewed. HOME MEDICATIONS: None. ALLERGIES: Cat dander. FAMILY HISTORY: History of dementia, pulmonary embolism. SOCIAL HISTORY: No smoking. No alcohol. REVIEW OF SYSTEMS: A 14-point review of systems negative except as mentioned earlier. PHYSICAL EXAMINATION: VITAL SIGNS: Pulse is 75, blood pressure 150/78, respirations 17. HEENT: Conjunctivae normal. CARDIOVASCULAR: S1, S2. RESPIRATIONS: Clear to auscultation. ABDOMEN: Soft. Mild diffuse discomfort in the epigastrium. No mass palpable. LEGS: No edema. NERVOUS SYSTEM: Nonfocal. LABORATORY DATA: Total bilirubin is 2.2. Rest of the labs are noted. ASSESSMENT: 1. Abdominal pain, possibly cholelithiasis and choledocholithiasis, status post endoscopic retrograde cholangiopancreatography. 2. Elevated lipase, possibly mild pancreatitis. 3. Asthma. 4. Gastroesophageal reflux disease. 5. Degenerative joint disease. 6. Family history of deep venous thrombosis. RECOMMENDATIONS AND DISCUSSION: This is a 39-year-old gentleman presented with multiple complex medical issues. We will monitor the patient closely. Continue current medications. Continue symptomatic treatment. Otherwise, closely follow with Gastroenterology, Surgery. Possible cholecystectomy tomorrow. Further recommendations to follow. MMODL / IJN: [id number] /
[2024-05-24] MEDS: IV FLUID CONTINUATION 1,000 ML IV ONE (09:10)
[2024-05-24] MEDS: ONDANSETRON 4 MG/2 ML VIAL IVP PRN (09:37)
[2024-05-24] MEDS: DEXAMETHASONE SOD PHOSPHATE 4 MG/ML 1 ML VIAL IVP STA (09:37)
[2024-05-24] MEDS: ACETAMINOPHEN TAB 500 MG TAB PO STA (11:16)
[2024-05-24] MEDS ORDERED: PROPOFOL 10 MG/ML 20 ML VIAL IV ONE (11:51)
[2024-05-24] MEDS ORDERED: SUCCINYLCHOLINE CHLORIDE 200 MG/10 ML VIAL IV ONE (11:51)
[2024-05-24] MEDS ORDERED: GLYCOPYRROLATE 0.2 MG/ML 2 ML VIAL ONE (11:51)
[2024-05-24] MEDS ORDERED: HYDROmorphone (PF) 1 MG/ML ONE (11:51)
[2024-05-24] MEDS ORDERED: ROCURONIUM 10 MG/ML (5 ML VIAL) IV ONE (11:51)
[2024-05-24] MEDS ORDERED: fentaNYL (PF) 50 MCG/ML 2 ML AMP ONE (11:51)
[2024-05-24] MEDS ORDERED: LIDOCAINE 1% INJ 10MG/ML (20 ML MDV) ONE (11:51)
[2024-05-24] MEDS ORDERED: MIDAZOLAM 2 MG/2 ML VIAL ONE (11:51)
[2024-05-24] MEDS ORDERED: NEOSTIGMINE 1 MG/ML 10 ML VIAL ONE (11:51)
[2024-05-24] MEDS: LIDOCAINE 1%-EPI 1:100,000 20 ML VIAL SQ ONE (12:21)
[2024-05-24] MEDS ORDERED: ACETAMINOPHEN TAB 325 MG TAB PO PRN (12:46)
[2024-05-24] MEDS ORDERED: NALOXONE 0.4 MG/ML 1 ML VIAL IV PRN (12:46)
[2024-05-24] MEDS ORDERED: ONDANSETRON 4 MG/2 ML VIAL IVP PRN (12:46)
--- NOTE | 2024-05-24 12:46 | P.OP ---
Date of Procedure: 05/24/24 Preoperative Diagnosis: Cholecystitis Cholelithiasis Postoperative Diagnosis: Cholecystitis Cholelithiasis Procedure(s) Performed: Laparoscopic cholecystectomy Anesthesia: CANDACE Surgeon: Carter Richard Estimated Blood Loss (ml): 5 Pathology: other (Gallbladder) Condition: stable Disposition: PACU Description of Procedure: The patient's placed on the operative table in the supine position. The patient received general endotracheal anesthesia. His abdomen was prepped with sterile fashion. An infraumbilical skin incision was made. The Veress needles positioned into the peritoneal cavity. Position of the Veress needle was confirmed with a positive drop test. The abdomen was then insufflated. After adequate insufflation a 5 mm trochars placed. Cavity. Next the laparoscope placed. Cavity. A 8 mm robotic trocar was placed in the left mid abdomen. A a 8 mm robotic trochars placed in the right lateral position and then the right mid abdomen position. The patient was then placed in reverse Trendelenburg. Patient with was docked to the robot. There were adhesions to the dome of the gallbladder. These were lysed using the hook cautery. The gallbladder fundus was then grasped with a pro-grasp grasper. And then the gallbladder was retracted cephalad. There were adhesions along the body of the gallbladder. These were lysed with sharp dissection. The fundus of the gallbladder was then grasped in the lateral traction was placed in the fundus. And then using blunt and sharp dissection the cystic duct was identified. Using firing applied the cystic duct was identified. A critical view of safety was achieved. The cystic duct was seen entering the common bile duct the common hepatic duct was seen. The cystic duct had been completely dissected and then the cystic duct was clipped and divided. The cystic artery was then identified and then clipped and divided. The gallbladder was then removed from liver bed using left cautery. The gallbladder was placed in a 5 mm Endo Catch bag. The liver bed was hemostasis. There is no bleeding seen. The abdomen was irrigated. No bleeding was seen. The patient was then undocked from the robot. The gallbladder was extracted through the umbilical port site. The umbilical port site was then closed with 0 Ethibond suture. The trochars withdrawn. Skin was closed interrupted 3-0 Monocryl suture. Dermabond dressing applied. Patient top she will was sent to recovery room in stable condition.
[2024-05-24] MEDS: KETOROLAC 15 MG/ML 1 ML VIAL IVP SCH (13:04)
[2024-05-24] MEDS: HYDROmorphone 0.5 MG/0.5 ML SYRINGE IVP PRN (13:20)
[2024-05-24] MEDS: LACTATED RINGERS 1,000 ML IV SCH (14:08)
--- NOTE | 2024-05-24 14:17 | P.PN ---
Subjective Progress Note Date: 05/24/24 This is a 39-year-old male who was recently admitted with epigastric abdominal pain found to have cholelithiasis as well as prominent CBD duct with dilatation possibly secondary to CBD stones and status post ERCP with biliary septostomy and balloon sweep. Patient also being followed by general surgery and is scheduled to undergo laparoscopic cholecystectomy today. Patient is currently n.p.o. and will await surgical report. White count is normal and patient is afebrile, hemoglobin is 14.8 and platelets are stable at 199. ALT/AST trending down and total bili is 2.4. Review of systems: Constitutional: No reports of fatigue, fever, or chills Cardiovascular: No reports of chest pain or palpitations Respiratory: No reports of shortness of breath or cough GI: reports of nausea, no reports of vomiting, no diarrhea, reports abdominal pain : No reports of dysuria or retention Neurovascular: reports of generalized weakness All medications have been reviewed PHYSICAL EXAMINATION: GENERAL: The patient is alert and oriented x4, Well developed, well nourished. Obese HEENT: Pupils are round and equally reacting to light. EOMI. no scleral icterus. No conjunctival pallor. Normocephalic, atraumatic. No pharyngeal erythema. No thyromegaly. CARDIOVASCULAR: S1 and S2 muffled PULMONARY: diminished breath sounds bilaterally with no wheezing or rhonchi noted. ABDOMEN: soft. Nontender on exam. obese. non-distended, normoactive bowel sounds. No palpable organomegaly. MUSCULOSKELETAL: No joint swelling or deformity. EXTREMITIES: No cyanosis, clubbing, or pedal edema. NEUROLOGICAL: Gross neurological examination did not reveal any focal deficits. Diffuse weakness SKIN: No rashes. Assessment: Abdominal pain, possibly cholelithiasis and choledocholithiasis, status post ERCP with balloon sweeping. Scheduled for laparoscopic cholecystectomy today 05/24/2024 Elevated lipase, possible mild pancreatitis History of asthma, not in exacerbation GERD Degenerative joint disease Family history of DVT History of osteoarthritis GI prophylaxis DVT prophylaxis Full code Plan: Recommend to continue with current medications and management with GI and general surgery following. Patient is status post ERCP with biliary septostomy and balloon sweeping with GI yesterday. Patient is scheduled for laparoscopic cholecystectomy today and will await surgical report Encourage incentive spirometer use and continue using at least 10 times every hour while awake Continue with pain management Follow-up on repeat labs and will repeat amylase/lipase Continue gentle hydration and replace electrolytes per protocol Diet to be resumed once cleared by surgery Encourage increase activity as tolerated The impression and plan of care has been dictated by Uma Tay, nurse practitioner as directed. Dr. Pablito MD I have performed a history and examination and MDM of this patient, discussed the same with the dictator, and agree with the dictator's assessment and plan as written ,documented as a scribe. Based on total visit time, I have performed more than 50% of the visit. Any additional findings or plans will be noted. Objective - Vital Signs Vital signs: Vital Signs Temp 98.2 F 05/24/24 09:15 Pulse 63 05/24/24 09:15 Resp 16 05/24/24 09:15 BP 113/73 05/24/24 09:15 Pulse Ox 97 05/24/24 09:15 FiO2 Intake & Output 05/23/24 05/24/24 05/24/24 18:59 06:59 18:59 Intake Total 700 200 Balance 700 200 Weight 144.696 kg Intake: IV 700 200 Other: # Voids 1 2 - Labs CBC & Chem 7: 05/23/24 03:01 05/23/24 03:01
--- NOTE | 2024-05-24 15:33 | P.PN ---
Progress Note - Text Progress Note Date: 05/24/24 Had attempted to see patient twice today. Patient was in operating room for cholecystectomy. Will follow-up tomorrow. Dr. Tres Gutierrez I agree with the dictator's note, documented as a scribe by Nelida Ring.
[2024-05-24] MEDS: HYDROmorphone 1 MG/ML 1 ML SYRINGE IVP PRN (17:11)
[2024-05-24 19:17] LABS: Basophils % (A) 0 %; Eosinophils # (A) 0.1 k/uL (0-0.7); Eosinophils % (A) 1 %; HCT 48.4 % (39.0-53.0); HGB 15.7 gm/dL (13.0-17.5); Lymphocytes # (A) 0.4 k/uL (1.0-4.8); Lymphocytes % (A) 4 %; MCH 29.6 pg (25.0-35.0); MCHC 32.5 g/dL (31.0-37.0); MCV 91.2 fL (80.0-100.0); Mean Platelet Volume 7.6; Monocytes # (A) 0.6 k/uL (0-1.0); Monocytes % (A) 5 %; Neutrophils # (A) 9.8 k/uL (1.3-7.7); Neutrophils % (A) 89 %; Platelet Count 225 k/uL (150-450); RBC 5.31 m/uL (4.30-5.90); RDW 12.2 % (11.5-15.5)
[2024-05-24 19:32] LABS: ALT 162 U/L (4-49); AST 58 U/L (17-59); African American GFR (CKD) >90 (>60 ml/min/1.73 sqM); Albumin 3.8 g/dL (3.5-5.0); Albumin/Globulin Ratio 1.5; Alkaline Phosphatase 108 U/L (38-126); Amylase 36 U/L (30-110); Anion Gap 6 mmol/L; Blood Urea Nitrogen 7 mg/dL (9-20); Carbon Dioxide 24 mmol/L (22-30); Chloride 107 mmol/L (98-107); Globulin 2.6 g/dL; Glucose 117 mg/dL (74-99); Lipase 88 U/L (23-300); Non-African American GFR(CKD) >90 (>60 ml/min/1.73 sqM); Potassium 4.7 mmol/L (3.5-5.1); Sodium 137 mmol/L (137-145); Total Bilirubin 1.1 mg/dL (0.2-1.3); Total Protein 6.4 g/dL (6.3-8.2)
[2024-05-24] MEDS: HYDROcodone/APAP 5-325MG 1 EACH TAB PO PRN (20:13)
[2024-05-25] MEDS: ENOXAPARIN 40 MG/0.4 ML SYRINGE SQ SCH (07:58)
[2024-05-25 08:27] LABS: Basophils % (A) 0 %; Eosinophils # (A) 0.1 k/uL (0-0.7); Eosinophils % (A) 2 %; HCT 40.2 % (39.0-53.0); HGB 14.1 gm/dL (13.0-17.5); Lymphocytes # (A) 1.1 k/uL (1.0-4.8); Lymphocytes % (A) 13 %; MCH 30.5 pg (25.0-35.0); MCV 87.3 fL (80.0-100.0); Mean Platelet Volume 7.6; Monocytes # (A) 0.4 k/uL (0-1.0); Monocytes % (A) 5 %; Neutrophils # (A) 6.8 k/uL (1.3-7.7); Neutrophils % (A) 79 %; Platelet Count 207 k/uL (150-450); RBC 4.61 m/uL (4.30-5.90); RDW 12.4 % (11.5-15.5); WBC 8.6 k/uL (3.8-10.6)
--- NOTE | 2024-05-25 10:55 | P.PN ---
Subjective Progress Note Date: 05/25/24 CHIEF COMPLAINT: Cholecystitis HISTORY OF PRESENT ILLNESS: Patient postop day #1 status post laparoscopic cholecystectomy. Patient had ERCP with biliary septotomy and balloon sweep with Dr. Gutierrez on 05/23/2024. Patient reports his pain is controlled. He is tolerating diet. He has been up and ambulating. He is having flatus. He is afebrile. WBC is down from 11-8.6 Hgb 14.1 PHYSICAL EXAM: VITAL SIGNS: Reviewed. GENERAL: Well-developed in no acute distress. ABDOMEN: Soft. Nondistended. Incision sites clean dry and intact NEUROLOGIC: Alert and oriented. Cranial nerves II through XII grossly intact. ASSESSMENT: 1. Cholecystitis and cholelithiasis status post laparoscopic cholecystectomy 2. Gallstone pancreatitis PLAN: -Patient is stable from surgical standpoint for discharge Physician Budget Assistant note has been reviewed by physician. Signing provider agrees with the documented findings, assessment, and plan of care. Objective - Vital Signs Vital signs: Vital Signs Temp 98.1 F 05/25/24 07:00 Pulse 83 05/25/24 07:00 Resp 16 05/25/24 07:00 BP 105/65 05/25/24 07:00 Pulse Ox 95 05/25/24 07:00 FiO2 Intake & Output 05/24/24 05/25/24 05/25/24 18:59 06:59 18:59 Intake Total 750 Output Total 5 Balance 745 Weight 144.696 kg Intake: IV 750 Output: Estimated Blood Loss 5 Other: Voiding Method Toilet Toilet # Voids 1 2 - Labs CBC & Chem 7: 05/25/24 08:08 05/24/24 18:32 Labs: Abnormal Lab Results - Last 24 Hours (Table) 05/24/24 05/24/24 Range/Units 18:32 18:32 WBC 11.0 H (3.8-10.6) k/uL Neutrophils # 9.8 H (1.3-7.7) k/uL Lymphocytes # 0.4 L (1.0-4.8) k/uL BUN 7 L (9-20) mg/dL Creatinine 0.56 L (0.66-1.25) mg/dL Glucose 117 H (74-99) mg/dL ALT 162 H (4-49) U/L
[2024-05-25 14:14] VITALS: BP 104/67; PULSE 80; RESP 15; TEMP 97.9
--- NOTE | 2024-05-25 14:46 | P.PN ---
Subjective Progress Note Date: 05/25/24 Principal diagnosis: Dilated common bile duct, cholelithiasis This is a pleasant 39-year-old male who presented to the emergency department with complaints of abdominal pain that had started Wednesday evening. Said it was mostly in his chest and cramping in the mid abdominal area radiating to his back. He thought it was gas pain he did intentionally make himself vomit. Pain continued so he came in for further evaluation. Past medical history includes bariatric surgery with sleeve gastrectomy in 2020 hernia repair and obesity. As part of his workup he had blood work done that did show elevation in his LFTs and elevated lipase. He had a CT of the abdomen pelvis that reported normal CT scan however gallbladder ultrasound did report prominent CBD at 1.0 cm with Leeanna lithiasis. He states abdominal pain a little bit better today. No nausea or vomiting. He has been afebrile. LFTs continue to remain elevated with total bilirubin at 2.4 AST 172 ALT 294 alkaline phosphatase 92 amylase 87 lipase 583. Patient has no leukocytosis, INR 1.1 05/25/2024 Patient seen and examined today as a follow-up. He is status post ERCP with small filling, biliary sphincterectomy and balloon sweep however no stone seen exiting the ampulla. Yesterday he underwent laparoscopic cholecystectomy with findings of cholecystitis and cholelithiasis. LFTs have all trended down. He has been afebrile. Has some surgical pain but no other pain in the epigastric area. Tolerating regular diet and passing gas. Objective - Vital Signs Vital signs: Vital Signs Temp 98.1 F 05/25/24 07:00 Pulse 83 05/25/24 07:00 Resp 16 05/25/24 07:00 BP 105/65 05/25/24 07:00 Pulse Ox 95 05/25/24 07:00 FiO2 Intake & Output 05/24/24 05/25/24 05/25/24 18:59 06:59 18:59 Intake Total 750 Output Total 5 Balance 745 Weight 144.696 kg Intake: IV 750 Output: Estimated Blood Loss 5 Other: Voiding Method Toilet # Voids 1 2 - Exam General appearance: The patient is alert, oriented, appears in no acute distress. HET: Head is normocephalic and atraumatic. Conjunctiva pink. Sclera anicteric. Neck: Supple without lymphadenopathy. Abdomen: Soft, nontender, nondistended. Extremities: Normal skin color and turgor. No pedal edema Skin: No rashes, no jaundice Neurological: No focal deficits. Alert and oriented. - Labs CBC & Chem 7: 05/25/24 08:08 05/24/24 18:32 Labs: Abnormal Lab Results - Last 24 Hours (Table) 05/24/24 05/24/24 Range/Units 18:32 18:32 WBC 11.0 H (3.8-10.6) k/uL Neutrophils # 9.8 H (1.3-7.7) k/uL Lymphocytes # 0.4 L (1.0-4.8) k/uL BUN 7 L (9-20) mg/dL Creatinine 0.56 L (0.66-1.25) mg/dL Glucose 117 H (74-99) mg/dL ALT 162 H (4-49) U/L Assessment and Plan (1) Gallstone pancreatitis Narrative/Plan: 39-year-old male presenting with abdominal pain with elevated lipase and LFTs with cholelithiasis and prominent CBD found on ultrasound consistent with a gallstone pancreatitis. Labs are with a cholestatic pattern suggesting choledocholithiasis. Would recommend proceeding with ERCP and consultation to general surgery. Patient had undergone ERCP with findings of faint filling defect in distal common bile duct status post biliary sphincterectomy and balloon sweep with no stone seen exiting the ampulla. Also status post cholecystectomy. Plan for discharge home today. Current Visit: Yes Status: Acute Code(s): K85.10 - BILIARY ACUTE PANCREATITIS WITHOUT NECROSIS OR INFECTION SNOMED Code(s): 27181104 (2) Cholelithiasis Current Visit: Yes Status: Acute Code(s): K80.20 - CALCULUS OF GALLBLADDER W/O CHOLECYSTITIS W/O OBSTRUCTION SNOMED Code(s): 380905509 (3) Abdominal pain Current Visit: Yes Status: Acute Code(s): R10.9 - UNSPECIFIED ABDOMINAL PAIN SNOMED Code(s): 62782731 (4) Morbid obesity Current Visit: No Status: Acute Code(s): E66.01 - MORBID (SEVERE) OBESITY DUE TO EXCESS CALORIES SNOMED Code(s): 265653502 (5) History of sleeve gastrectomy Current Visit: Yes Status: Acute Code(s): Z90.3 - ACQUIRED ABSENCE OF STOMA CH [PART OF] SNOMED Code(s): 052618500212264 (6) Transaminitis Current Visit: Yes Status: Acute Code(s): R74.01 - ELEVATION OF LEVELS OF LIVER TRANSAMINASE LEVELS SNOMED Code(s): 874439796 Plan: 1. Continue symptomatic and supportive care 2. Diet as tolerated 3. Continue with recommendations from general surgery 4. Patient is cleared from gastroenterology for discharge Thank you for this consultation, we will sign off at this time. Dr. Tres Gutierrez I agree with the dictator's note, documented as a scribe by Nelida Ring.
--- NOTE | 2024-05-29 10:08 | P.DS ---
Providers Date of admission: 05/23/24 09:48 Expected date of discharge: 05/25/24 Attending physician: Frank Escobar MD Consults: 05/22/24 22:21 Consult Physician Routine Consulting Provider: Aide Gutierrez Consult Reason/Comments: dilated common bile duct Do you want consulting provider notified?: Already Contacted 05/23/24 09:54 Consult Physician Routine Consulting Provider: Carter Richard Consult Reason/Comments: gallstone pancreatitis Do you want consulting provider notified?: Yes Primary care physician: Stated None Hospital Course: Final diagnosis Abdominal pain, possibly cholelithiasis and choledocholithiasis, status post ERCP with balloon sweeping. Status post laparoscopic cholecystectomy today 05/24/2024 Elevated lipase, possible mild pancreatitis, trending down History of asthma, not in exacerbation GERD Degenerative joint disease Family history of DVT Obesity with a BMI of 39.9 History of osteoarthritis GI prophylaxis DVT prophylaxis Full code Discharge disposition Patient is being discharged in a stable condition with guarded prognosis to home. Patient will follow-up with Dr. Rizzo to establish in the outpatient setting upon discharge. Patient is to continue with outpatient follow-up with dietary as well as general surgery as scheduled. Total time taken is greater than 35 minutes. Hospital course This is a 39-year-old male who was recently admitted with abdominal pain secondary to cholelithiasis as well as choledocholithiasis with elevated LFTs status post ERCP with balloon sweeping. Patient also evaluated by general surgery underwent laparoscopic cholecystectomy on 05/24/2024. Patient is doing well reports to feeling well has been up and walking with some mild abdominal discomfort. Patient is tolerating diet with no reports of nausea or vomiting. Passing gas with no bowel movement as of yet. Patient has been cleared by general surgery and instructed to follow-up in 1 week on discharge. Patient also provided resources for outpatient follow-up to establish with a new primary care provider. Patient reports he has been making an appointment with Dr. Rizzo to establish with. Please refer to other consultation notes for further HPI. Referral placed to dietitian consult as well. Currently no reports of chest pain, shortness of breath, or palpitations. Patient is afebrile. No reports of nausea or vomiting and patient is tolerating diet. Patient will be discharged home today. Physical exam: Gen: This is a 39-year-old male who is awake, alert and oriented x 3, well- developed, well-nourished, obese HEENT: Head is atraumatic, normocephalic. Pupils equal, round. Sclerae is anicteric. NECK: Supple. No JVD. No lymphadenopathy. No thyromegaly. LUNGS: Diminished breath sounds bilaterally otherwise clear to auscultation. No wheezes or rhonchi. No intercostal retractions. HEART: S1, S2 are muffled ABDOMEN: Soft. Obese bowel sounds are present. No masses. Mild tenderness noted on palpation. EXTREMITIES: No pedal edema. No calf tenderness. NEUROLOGICAL: Patient is awake, alert and oriented x3. Cranial nerves 2 through 12 are grossly intact. Please refer to medication reconciliation sheet for a list of medications. The impression and plan of care has been dictated by Uma Tay, Nurse Practitioner as directed. Dr. Pablito MD I have performed a history and examination and MDM of this patient, discussed the same with the dictator, and agree with the dictator's assessment and plan as written ,documented as a scribe. Based on total visit time, I have performed more than 50% of the visit. Patient Condition at Discharge: Stable Plan - Discharge Summary Discharge Rx Participant: Yes New Discharge Prescriptions: New HYDROcodone/APAP 5-325MG [[place] 5-325] 1 tab PO Q6HR PRN 3 Days #12 tab PRN Reason: Pain Pantoprazole [Protonix] 40 mg PO DAILY 14 Days #14 tab Acetaminophen Tab [Tylenol] 650 mg PO Q6HR PRN tab PRN Reason: Mild Pain Or Fever >= 100.5 Levofloxacin [Levaquin] 500 mg PO DAILY 5 Days #5 tab Discharge Medication List Acetaminophen Tab [Tylenol] 650 mg PO Q6HR PRN tab 05/25/24 [Rx] HYDROcodone/APAP 5-325MG [[place] 5-325] 1 tab PO Q6HR PRN 3 Days #12 tab 05/25/24 [Rx] Levofloxacin [Levaquin] 500 mg PO DAILY 5 Days #5 tab 05/25/24 [Rx] Pantoprazole [Protonix] 40 mg PO DAILY 14 Days #14 tab 05/25/24 [Rx] Follow up Appointment(s)/Referral(s): Judy Rizzo MD [STAFF PHYSICIAN] - 1 Week Carter Richard MD [STAFF PHYSICIAN] - 1 Week Ambulatory/Diagnostic Orders: Comprehensive Metabolic Panel [LAB.AMB] Time Frame: 1 Week, Location: None Selected Activity/Diet/Wound Care/Special Instructions: Activity limited until follow-up Follow-up with primary care provider on discharge and establish follow-up general surgery Continue taking medications as prescribed Discharge Disposition: HOME SELF-CARE
== END 2024-05-25 16:06 | disposition home or self-care (01) | DRG 417 ==
LOC: EC 18:29 → 6NMEDSUR 22:23 → OBSVTOIN 05-23 09:48 → 6NMEDSUR 05-23 11:33
PROVIDERS: ADMIT Internal Medicine; ATTEND Internal Medicine
PROC: 0F798ZZ Dilation of Common Bile Duct, Via Natural or Artificial Opening Endoscopic (ICD-10-PCS; 2024-05-23 07:30)
PROC: 0FT44ZZ Resection of Gallbladder, Percutaneous Endoscopic Approach (ICD-10-PCS; principal; 2024-05-24 10:05)
DX: K80.10 Calculus of gallbladder with chronic cholecystitis without obstruction (principal); K85.10 Biliary acute pancreatitis without necrosis or infection; K21.9 Gastro-esophageal reflux disease without esophagitis; J45.909 Unspecified asthma, uncomplicated; M19.90 Unspecified osteoarthritis, unspecified site; Z68.39 Body mass index [BMI] 39.0-39.9, adult; E66.01 Morbid (severe) obesity due to excess calories; Z98.84 Bariatric surgery status
CPT/HCPCS: 36415; 43260; 43262; 43277; 71046; 74177; 74330; 76705; 80053; 82150; 83690; 83735; 84484; 85025; 85610; 85730; 88304; 93005; 96361; 96374; 99285